=== PATIENT | female | born 1980 | race Caucasian/White ===

== ENCOUNTER 2022-01-01 13:08 | Inpatient (IN) | payer SELFPAY ==
--- NOTE | 2022-01-01 13:57 | Cat Scan Report ---
NONENHANCED CT SCAN OF THE HEAD: INDICATION / CLINICAL INFORMATION: 41 years Female; CODE STROKE CALL [phone] LEFT SIDED WEAKNESS/LEFT SIDED DROP NO HX OF HBP. TECHNIQUE: Routine CT head without contrast. All CT scans at this location are performed using CT dos e reduction for ALARA by means of automated exposure control. COMPARISON: None. FINDINGS: BRAIN / INTRACRANIAL CONTENTS: No intracerebral hemorrhage or stroke mimics No acute hemorrhage, mass effect, midline shift, hydrocephalus, or acute, large territorial infarct. No chronic infarct or focal atrophy. Normal brain volume and ventricular/sulcal size for age. No sig nificant white matter abnormality. CRANIOCERVICAL JUNCTION: No significant abnormality. ORBITS: No significant abnormality of visualized orbits. SINUSES / MASTOIDS: No significant abnormality of the visualized paranasal sinuses or mastoid air lurdes ls. ADDITIONAL FINDINGS: Focal calcification in the sella turcica on the right side of pituitary gland, p robably pituitary stone IMPRESSION: No intracerebral hemorrhage or stroke mimics No acute focal parenchymal lesion CODE STROKE: Time of Communication (TALENT MANAGEMENT SPECIALIST/CDT): 12:50 PM Central daylight saving time Licensed Practitioner Receiving Report: ER physician Signer Name: Belen Fernandez MD Signed: 01/01/2022 1:53 PM Workstation Name: [id number]
[2022-01-01] MEDS ORDERED: SODIUM CHLORIDE 0.9% 50 ML IVPB IV ONE (14:17)
[2022-01-01] MEDS ORDERED: ALTEPLASE 100 MG INJ KIT IV ONE ×2 (14:17)
[2022-01-01 14:21] LABS: Basophils % (Auto) 0.6 % (0.0-1.8); Eosinophils % (Auto) 0.7 % (0.0-4.3); Hematocrit 26.4 % (30.3-42.9); Hemoglobin 8.5 gm/dl (10.1-14.3); Lymphocytes # (Auto) 0.6 K/mm3 (1.2-5.4); Lymphocytes % (Auto) 13.3 % (13.4-35.0); Mean Corpuscular HGB Conc 32 % (30-34); Mean Corpuscular Volume 105 fl (79-97); Monocytes # (Auto) 0.3 K/mm3 (0.0-0.8); Monocytes % (Auto) 6.9 % (0.0-7.3); Platelet Count 176 K/mm3 (140-440); Red Blood Count 2.51 M/mm3 (3.65-5.03)
[2022-01-01 14:22] LABS: Red Cell Distribution Width 22.9 % (13.2-15.2)
[2022-01-01 14:31] LABS: INR 0.97 (0.87-1.13)
--- NOTE | 2022-01-01 14:38 | Cat Scan Report ---
CTA NECK WITH CONTRAST 01/01/2022 INDICATION / CLINICAL INFORMATION: code stoke 100ml of omnipaque 350 given LEFT SIDED WEAKNESS/LEFT SIDED DROP NO HX OF HBP. COMPARISON: None. TECHNIQUE: Routine CTA of the neck is performed. 3-D/MIP reformats were postprocessed. Percentage st enosis is determined by direct quantitative measurements of diseased internal carotid artery diameter compared with normal distal internal carotid artery reference segments or by criteria similar to MIMA CET where applicable. All CT scans at this location are performed using CT dose reduction for ALARA b y means of automated exposure control. CONTRAST: 100 ml of Omnipaque 350 FINDINGS: Carotid bifurcations: There is no evidence of carotid bifurcation stenosis. Carotid arteries: No significant abnormality. Cervical vertebral arteries: No significant abnormality. Aortic arch: No significant abnormality. None. IMPRESSION: No significant abnormality. Signer Name: Dung Farrell MD Signed: 01/01/2022 2:34 PM Workstation Name: [id number]
[2022-01-01 14:43] LABS: Creatine Kinase MB 1.4 ng/mL (0.0-4.0)
[2022-01-01 14:44] LABS: Alanine Aminotransferase 11 units/L (7-56); Albumin 3.6 g/dL (3.9-5); Blood Urea Nitrogen 10 mg/dL (7-17); Calcium 8.2 mg/dL (8.4-10.2); Hemolysis Index 2
[2022-01-01 14:45] LABS: BUN/Creatinine Ratio 20
--- NOTE | 2022-01-01 15:05 | Emergency Department Report ---
ED Neuro Deficit HPI - General Chief Complaint: Neuro Symptoms/Deficit Stated Complaint: CHEST/HEAD HURTS Time Seen by Provider: 01/01/22 13:43 Source: patient Mode of arrival: Ambulatory Limitations: No Limitations - History of Present Illness Initial Comments: [facility] Consult Note # Demographics Consult Type: Acute Stroke Level 1 (0-4.5 hrs) Patient Location: Emergency Room First Name: Tom Last Name: Peter Date of : 1980 Age: 41 Gender: Male Facility: [facility] Time of Initial Page ( Time): 01/01/2022, 13:27 Time of Return Call ( Time): 01/01/2022, 13:27 # HPI Chief Complaint: weakness (focal) Handedness: Right History: Per ER staff, sudden onset left arm & facial weakness at 1pm. Last Known Normal: I have collected independent history specific to time last normal or last known well. We have collaborated with the provider and at this time, we have the most current timeline with the information that is available. 1pm Duration: constant minutes Possible Thrombolytic candidate: not on warfarin or NOACs no intracranial hemorrhage history no recent major surgery Quality: weakness # Scores Time of exam and NIHSS ( Time): 01/01/2022, 13:32 Level of Consciousness 1a: [0] = Alert; keenly responsive LOC Questions 1b: [0] = Answers both questions correctly LOC Commands 1c: [0] = Performs both tasks correctly Best Gaze 2: [0] = Normal Visual 3: [0] = No visual loss Facial Palsy 4: [1] = Minor paralysis Motor Arm Left 5a: [3] = No effort against gravity Motor Arm Right 5b: [0] = No drift Motor Leg Left 6a: [2] = Some effort against gravity Motor Leg Right 6b: [0] = No drift Limb Ataxia 7: [0] = Absent Sensory 8: [1] = [id number]-[id number] sensory loss Best Language 9: [0] = No aphasia Dysarthria 10: [0] = Normal Extinction and Inattention 11: [0] = No abnormality NIHSS Total: 7 Modified Sterling Scale (mRS) pre-stroke: [0] = No Symptoms Modified Karol Scale total: 0 VAN Screening: Negative # Exam SBP: 245 DBP: 113 Mental Status: awake alert and oriented x 3 follows commands Cranial Nerves: left facial droop Mild asymmetry Sensory: decreased sensation left face decreased sensation left upper extremity # PMH-FH-SH Past Medical History: asthma hypertension Social History: non-smoker Medications: antihypertensive # Data Glucose: [address] personally read by me ( Time): 01/01/2022, 13:[address]: no bleed per radiologist read # Assessment Impression: Ischemic Stroke (Acute) # Plan Thrombolytic/Intervention: IV thrombolytic and possible IA candidate Thrombolytic Dosing: IV alteplase 0.9 mg/kg, max dose 90 mg; 10% of dose given over 1 minute IVP, remaining 90% given as infusion over 1 hour Possible IA Candidate: CTA pending Time IV Thrombolytic Recommended ( Time): 01/01/2022, 13:41 Labs: CBC comprehensive metabolic panel ESR hemoglobin A1c lipid panel troponin TSH urine drug screen ua hCG - patient stated that she was not Imaging: (urgency: STAT): CT Angiogram Head and CT Angiogram Neck AND call back with results if abnormal Imaging: (urgency: routine): MRI Brain without contrast Diagnostic Test: echo without bubble study Therapy/Evaluation: NPO until swallow evaluation PT/OT evaluation Medication: aspirin 81 mg daily start statin with goal of LDL < 70 DVT Prophylaxis: SCD chemical DVT prophylaxis Thrombolytic Administration Recommendations: I reviewed the risks/benefits/alternatives of IV thrombolytic therapy with the patient. They understand there is potential of life threatening hemorrhage from IV thrombolysis. I stated that I believe benefits outweighs risk. They wish to proceed with IV thrombolytic therapy. I have collected independent history specific to time last normal or last known well. We have collaborated with the ED provider and at this time, we have the most current timeline with the information that is available. BP goal< 180/105 for 24hrs post Thrombolytic administration Use Labetolol 10-20mg IV prn or Nicardipine gtt to maintain BP parameters No antiplatelets or anticoagulants for next 24 hrs unless indicated for emergent IA procedure or other life threatening situation Other: telemetry monitoring I have discussed my recommendations with the referring provider Disposition: admit # Logistics Telemedicine: Interactive 2 way audio and visual telecommunication technology was utilized during this visit Electronically signed at 01/01/2022 13:43 ( Time) by Urban Aden MD - Related Data Allergies/Adverse Reactions: Allergies Allergy/AdvReac Type Severity Reaction Status Date / Time No Known Allergies Allergy Verified 01/01/22 13:25 ED Review of Systems ROS: Stated complaint: CHEST/HEAD HURTS Other details as noted in HPI ED Neuro Physical Exam - General Limitations: No Limitations Suspected Stroke: Yes - NIHSS Assessment Interval: Baseline 1a. Level of Consciousness: alert/keenly responsive 1b. LOC Questions: answers both correctly 1c. LOC Commands: performs tasks correctly 2. Best Gaze: normal 3. Visual: no visual loss 4. Facial Palsy: minor paralysis 5b. Motor Arm Right: no gravity effort 5a. Motor Arm Left: no drift 6a. Motor Leg Left: some gravity effort 6b. Motor Leg Right: no drift 7. Limb Ataxia: absent 8. Sensory: mild/moderate sensory loss 9. Best Language: no aphasia 10. Dysarthria: normal 11. Extinction/Inattention: no abnormality Total Score: 7 Stroke Severity: Moderate Stroke ED Course Vital Signs 01/01/22 01/01/22 01/01/22 13:25 14:47 14:51 Temperature 98 F Pulse Rate 108 H 95 H 97 H Pulse Rate [ Right Arm] Respiratory 16 Rate Respiratory Rate [Right Arm ] Blood Pressure 184/97 184/97 Blood Pressure 223/110 [Left] Blood Pressure [Right Arm] O2 Sat by Pulse 97 Oximetry O2 Sat by Pulse Oximetry [ Right Arm] 01/01/22 14:52 Temperature Pulse Rate Pulse Rate [ 92 H Right Arm] Respiratory Rate Respiratory 12 Rate [Right Arm ] Blood Pressure Blood Pressure [Left] Blood Pressure 176/91 [Right Arm] O2 Sat by Pulse Oximetry O2 Sat by Pulse 93 Oximetry [ Right Arm] - Lab Data Result diagrams: 01/01/22 14:11 01/01/22 14:11 Lab Results 01/01/22 01/01/22 01/01/22 Range/Units 14:11 14:11 14:11 WBC 4.7 (4.5-11.0) K/mm3 RBC 2.51 L (3.65-5.03) M/mm3 Hgb 8.5 L (10.1-14.3) gm/dl Hct 26.4 L (30.3-42.9) % MCV 105 H (79-97) fl MCH 34 H (28-32) pg MCHC 32 (30-34) % RDW 22.9 H (13.2-15.2) % Plt Count 176 (140-440) K/mm3 Lymph % (Auto) 13.3 L (13.4-35.0) % [place] % (Auto) 6.9 (0.0-7.3) % Eos % (Auto) 0.7 (0.0-4.3) % Baso % (Auto) 0.6 (0.0-1.8) % Lymph # (Auto) 0.6 L (1.2-5.4) K/mm3 [place] # (Auto) 0.3 (0.0-0.8) K/mm3 Eos # (Auto) 0.0 (0.0-0.4) K/mm3 Baso # (Auto) 0.0 (0.0-0.1) K/mm3 Seg Neutrophils % 78.5 H (40.0-70.0) % Seg Neutrophils # 3.7 (1.8-7.7) K/mm3 PT 14.0 (12.2-14.9) Sec. INR 0.97 (0.87-1.13) APTT 32.0 (24.2-36.6) Sec. Thrombin Time 16.0 (15.1-19.6) Sec. Sodium (137-145) mmol/L Potassium (3.6-5.0) mmol/L Chloride (98-107) mmol/L Carbon Dioxide (22-30) mmol/L Anion Gap mmol/L BUN (7-17) mg/dL Creatinine (0.6-1.2) mg/dL Estimated GFR ml/min BUN/Creatinine Ratio % Glucose (65-100) mg/dL Calcium (8.4-10.2) mg/dL Total Bilirubin (0.1-1.2) mg/dL AST (5-40) units/L ALT (7-56) units/L Alkaline Phosphatase (35-129) units/L Total Creatine Kinase (30-135) units/L CK-MB (CK-2) (0.0-4.0) ng/mL CK-MB (CK-2) Rel Index (0-4) Troponin T < 0.010 (0.00-0.029) ng/mL Total Protein (6.3-8.2) g/dL Albumin (3.9-5) g/dL Albumin/Globulin Ratio % // Range/Units 14:11 WBC (4.5-11.0) K/mm3 RBC (3.65-5.03) M/mm3 Hgb (10.1-14.3) gm/dl Hct (30.3-42.9) % MCV (79-97) fl MCH (28-32) pg MCHC (30-34) % RDW (13.2-15.2) % Plt Count (140-440) K/mm3 Lymph % (Auto) (13.4-35.0) % [place] % (Auto) (0.0-7.3) % Eos % (Auto) (0.0-4.3) % Baso % (Auto) (0.0-1.8) % Lymph # (Auto) (1.2-5.4) K/mm3 [place] # (Auto) (0.0-0.8) K/mm3 Eos # (Auto) (0.0-0.4) K/mm3 Baso # (Auto) (0.0-0.1) K/mm3 Seg Neutrophils % (40.0-70.0) % Seg Neutrophils # (1.8-7.7) K/mm3 PT (12.2-14.9) Sec. INR (0.87-1.13) APTT (24.2-36.6) Sec. Thrombin Time (15.1-19.6) Sec. Sodium 137 (137-145) mmol/L Potassium 3.5 L (3.6-5.0) mmol/L Chloride 100.7 (98-107) mmol/L Carbon Dioxide 26 (22-30) mmol/L Anion Gap 14 mmol/L BUN 10 (7-17) mg/dL Creatinine 0.5 L (0.6-1.2) mg/dL Estimated GFR > 60 ml/min BUN/Creatinine Ratio 20 % Glucose 101 H (65-100) mg/dL Calcium 8.2 L (8.4-10.2) mg/dL Total Bilirubin 1.70 H (0.1-1.2) mg/dL AST 30 (5-40) units/L ALT 11 (7-56) units/L Alkaline Phosphatase 94 (35-129) units/L Total Creatine Kinase 56 (30-135) units/L CK-MB (CK-2) 1.4 (0.0-4.0) ng/mL CK-MB (CK-2) Rel Index 2.5 (0-4) Troponin T < 0.010 (0.00-0.029) ng/mL Total Protein 7.2 (6.3-8.2) g/dL Albumin 3.6 L (3.9-5) g/dL Albumin/Globulin Ratio 1.0 % Critical care attestation.: If time is entered above; I have spent that time in minutes in the direct care of this critically ill patient, excluding procedure time. ED Disposition Clinical Impression: Stroke Disposition: 09 ADMITTED INPATIENT Is pt being admited?: Yes
--- NOTE | 2022-01-01 15:24 | Cat Scan Report ---
CTA HEAD WITH CONTRAST 01/01/2022 HISTORY: code stroke 100ml of omnipaque 350 given LEFT SIDED WEAKNESS/LEFT SIDED DROP NO HX OF HBP. COMPARISON: None. TECHNIQUE: All CT scans at this location are performed using CT dose reduction for ALARA by means of automated exposure control.. 3-D/MIP reformats postprocessed. Percentage stenosis is determined by d irect quantitative measurements of diseased internal carotid artery diameter compared with normal dis zonia internal carotid artery reference segments or by criteria similar to NASCET where applicable. CONTRAST: 100 ml of Omnipaque 350 FINDINGS: CTA HEAD: Intracranial vertebral arteries: No significant abnormality. Basilar artery: No significant abnormality. Posterior cerebral arteries: No significant abnormality. Intracranial internal carotid arteries: No significant abnormality. Anterior cerebral arteries: No significant abnormality. Middle cerebral arteries: No significant abnormality. Dural venous sinuses:Not optimally opacified. No significant abnormality. Additional findings: None. IMPRESSION: 1. No significant abnormality. Signer Name: Dung Farrell MD Signed: 01/01/2022 3:20 PM Workstation Name: [id number]
[2022-01-01 15:42] LABS: Amphetamine Screen,Urine Negative; Benzodiazepines Screen,Urine Negative; Cannabinoid Screen,Urine Negative; Cocaine Screen,Urine Negative; Methadone Screen,Urine Negative; Opiate Screen,Urine Negative
[2022-01-01 15:51] LABS: Bilirubin,Urine Negative (Negative); Color,Urine Yellow (Yellow)
[2022-01-01 15:52] LABS: Blood,Urine Small (Negative); Protein,Urine <15 mg/dL mg/dL (Negative)
--- NOTE | 2022-01-01 16:01 | Emergency Department Report ---
ED Neuro Deficit HPI - General Chief Complaint: Neuro Symptoms/Deficit Stated Complaint: CHEST/HEAD HURTS Time Seen by Provider: 01/01/22 13:43 Source: patient Mode of arrival: Ambulatory Limitations: No Limitations - History of Present Illness Initial Comments: PT PRESENTS TO ED WITH COMPLAINT OF LEFT SIDE WEAKNESS AND FACIAL DROOP X 1 HOUR pt had chest tightness then SOB and felt dizzy then felt left side is heavy and numb -: Sudden, hour(s) (1) Location: left face, left arm, left leg History of same: Yes Place: home Severity: mild Quality: weak, numb Improves With: none Worsens With: none On Anticoagulants: No Context: sudden onset Associated Symptoms: chest pain, shortness of breath. denies: denies other symptoms, confusion Treatments Prior to Arrival: none - Related Data Allergies/Adverse Reactions: Allergies Allergy/AdvReac Type Severity Reaction Status Date / Time No Known Allergies Allergy Verified 01/01/22 13:25 ED Review of Systems ROS: Stated complaint: CHEST/HEAD HURTS Other details as noted in HPI Constitutional: denies: chills, fever Eyes: denies: eye pain, eye discharge, vision change ENT: denies: ear pain, throat pain Respiratory: denies: cough, shortness of breath, wheezing Cardiovascular: denies: chest pain, palpitations Endocrine: no symptoms reported Gastrointestinal: denies: abdominal pain, nausea, diarrhea Genitourinary: denies: urgency, dysuria, discharge Musculoskeletal: denies: back pain, joint swelling, arthralgia Skin: denies: rash, lesions Neurological: denies: headache, weakness, paresthesias Psychiatric: denies: anxiety, depression Hematological/Lymphatic: denies: easy bleeding, easy bruising ED Past Medical Hx - Past Medical History Hx Hypertension: Yes Hx CVA: No Hx Heart Attack/AMI: No - Social History Smoking Status: Current Every Day Smoker ED Neuro Physical Exam - General Limitations: No Limitations General appearance: alert, in no apparent distress Suspected Stroke: Yes - Head Head exam: Present: atraumatic, normocephalic - Eye Eye exam: Present: normal appearance - ENT ENT exam: Present: mucous membranes moist - Neck Neck exam: Present: normal inspection - Respiratory Respiratory exam: Present: normal lung sounds bilaterally. Absent: respiratory distress - Cardiovascular Cardiovascular Exam: Present: regular rate, normal rhythm. Absent: systolic murmur, diastolic murmur, rubs, gallop - GI/Abdominal GI/Abdominal exam: Present: soft, normal bowel sounds - Extremities Exam Extremities exam: Present: normal inspection - Back Exam Back exam: Present: normal inspection - Neurological Exam Neurological exam: Present: alert, oriented X3 - NIHSS Assessment Interval: Baseline 1a. Level of Consciousness: alert/keenly responsive 1b. LOC Questions: answers both correctly 1c. LOC Commands: performs tasks correctly 2. Best Gaze: normal 3. Visual: no visual loss 4. Facial Palsy: minor paralysis 5b. Motor Arm Right: no drift 5a. Motor Arm Left: no gravity effort 6a. Motor Leg Left: some gravity effort 6b. Motor Leg Right: no drift 7. Limb Ataxia: absent 8. Sensory: mild/moderate sensory loss 9. Best Language: no aphasia 10. Dysarthria: normal 11. Extinction/Inattention: no abnormality Total Score: 7 Stroke Severity: Moderate Stroke - Psychiatric Psychiatric exam: Present: normal affect, normal mood - Skin Skin exam: Present: warm, dry, intact, normal color. Absent: rash ED Course Vital Signs 01/01/22 01/01/22 01/01/22 13:25 14:27 14:30 Temperature 98 F Pulse Rate 108 H Pulse Rate [ Right Arm] Respiratory 16 Rate Respiratory Rate [Right Arm ] Blood Pressure 175/85 175/85 Blood Pressure 223/110 [Left] Blood Pressure [Right Arm] O2 Sat by Pulse 97 80 L 86 Oximetry O2 Sat by Pulse Oximetry [ Right Arm] 01/01/22 01/01/22 01/01/22 14:47 14:51 14:52 Temperature Pulse Rate 95 H 97 H Pulse Rate [ 92 H Right Arm] Respiratory Rate Respiratory 12 Rate [Right Arm ] Blood Pressure 184/97 184/97 149/66 Blood Pressure [Left] Blood Pressure 176/91 [Right Arm] O2 Sat by Pulse 82 L Oximetry O2 Sat by Pulse 93 Oximetry [ Right Arm] 01/01/22 01/01/22 01/01/22 15:00 15:07 15:15 Temperature Pulse Rate Pulse Rate [ 96 H Right Arm] Respiratory Rate Respiratory 15 Rate [Right Arm ] Blood Pressure 184/97 Blood Pressure [Left] Blood Pressure 159/69 [Right Arm] O2 Sat by Pulse 91 93 Oximetry O2 Sat by Pulse 93 Oximetry [ Right Arm] 01/01/22 01/01/2222 15:16 15:22 15:30 Temperature Pulse Rate Pulse Rate [ 92 H Right Arm] Respiratory Rate Respiratory 18 Rate [Right Arm ] Blood Pressure 176/91 159/69 Blood Pressure [Left] Blood Pressure 155/99 [Right Arm] O2 Sat by Pulse 85 94 Oximetry O2 Sat by Pulse 94 Oximetry [ Right Arm] 01/01/22 01/01/22 01/01/22 15:37 15:46 16:07 Temperature Pulse Rate Pulse Rate [ 91 H Right Arm] Respiratory Rate Respiratory 19 18 Rate [Right Arm ] Blood Pressure 159/69 Blood Pressure [Left] Blood Pressure 155/99 146/77 [Right Arm] O2 Sat by Pulse 97 Oximetry O2 Sat by Pulse 95 97 Oximetry [ Right Arm] 01/01/22 01/01/22 01/01/22 16:16 16:30 16:46 Temperature Pulse Rate 89 92 H 91 H Pulse Rate [ Right Arm] Respiratory 32 H 34 H 28 H Rate Respiratory Rate [Right Arm ] Blood Pressure 140/73 153/80 152/79 Blood Pressure [Left] Blood Pressure [Right Arm] O2 Sat by Pulse 97 98 99 Oximetry O2 Sat by Pulse Oximetry [ Right Arm] 01/01/22 01/01/22 01/01/22 17:00 17:20 17:30 Temperature Pulse Rate 115 H 101 H 95 H Pulse Rate [ Right Arm] Respiratory 30 H 45 H 28 H Rate Respiratory Rate [Right Arm ] Blood Pressure 149/89 149/89 144/67 Blood Pressure [Left] Blood Pressure [Right Arm] O2 Sat by Pulse 87 89 97 Oximetry O2 Sat by Pulse Oximetry [ Right Arm] 01/01/22 01/01/22 01/01/22 17:46 18:00 18:16 Temperature Pulse Rate 92 H 90 88 Pulse Rate [ Right Arm] Respiratory 39 H 34 H 32 H Rate Respiratory Rate [Right Arm ] Blood Pressure 144/67 145/86 145/86 Blood Pressure [Left] Blood Pressure [Right Arm] O2 Sat by Pulse 97 94 94 Oximetry O2 Sat by Pulse Oximetry [ Right Arm] 01/01/22 01/01/22 01/01/22 18:30 18:46 18:50 Temperature Pulse Rate 94 H 96 H 96 H Pulse Rate [ Right Arm] Respiratory 37 H 37 H 20 Rate Respiratory Rate [Right Arm ] Blood Pressure 140/89 140/89 Blood Pressure 140/89 [Left] Blood Pressure [Right Arm] O2 Sat by Pulse 95 85 95 Oximetry O2 Sat by Pulse Oximetry [ Right Arm] 01/01/22 19:00 Temperature Pulse Rate 94 H Pulse Rate [ Right Arm] Respiratory 50 H Rate Respiratory Rate [Right Arm ] Blood Pressure 144/89 Blood Pressure [Left] Blood Pressure [Right Arm] O2 Sat by Pulse 98 Oximetry O2 Sat by Pulse Oximetry [ Right Arm] - Lab Data Result diagrams: 01/01/22 14:11 01/01/22 14:11 Lab Results 01/01/22 01/01/22 01/01/22 Range/Units 14:11 14:11 14:11 WBC 4.7 (4.5-11.0) K/mm3 RBC 2.51 L (3.65-5.03) M/mm3 Hgb 8.5 L (10.1-14.3) gm/dl Hct 26.4 L (30.3-42.9) % MCV 105 H (79-97) fl MCH 34 H (28-32) pg MCHC 32 (30-34) % RDW 22.9 H (13.2-15.2) % Plt Count 176 (140-440) K/mm3 Lymph % (Auto) 13.3 L (13.4-35.0) % [place] % (Auto) 6.9 (0.0-7.3) % Eos % (Auto) 0.7 (0.0-4.3) % Baso % (Auto) 0.6 (0.0-1.8) % Lymph # (Auto) 0.6 L (1.2-5.4) K/mm3 [place] # (Auto) 0.3 (0.0-0.8) K/mm3 Eos # (Auto) 0.0 (0.0-0.4) K/mm3 Baso # (Auto) 0.0 (0.0-0.1) K/mm3 Seg Neutrophils % 78.5 H (40.0-70.0) % Seg Neutrophils # 3.7 (1.8-7.7) K/mm3 PT 14.0 (12.2-14.9) Sec. INR 0.97 (0.87-1.13) APTT 32.0 (24.2-36.6) Sec. Thrombin Time 16.0 (15.1-19.6) Sec. D-Dimer (0-234) ng/mlDDU Sodium (137-145) mmol/L Potassium (3.6-5.0) mmol/L Chloride (98-107) mmol/L Carbon Dioxide (22-30) mmol/L Anion Gap mmol/L BUN (7-17) mg/dL Creatinine (0.6-1.2) mg/dL Estimated GFR ml/min BUN/Creatinine Ratio % Glucose (65-100) mg/dL Calcium (8.4-10.2) mg/dL Total Bilirubin (0.1-1.2) mg/dL AST (5-40) units/L ALT (7-56) units/L Alkaline Phosphatase (35-129) units/L Total Creatine Kinase (30-135) units/L CK-MB (CK-2) (0.0-4.0) ng/mL CK-MB (CK-2) Rel Index (0-4) Troponin T < 0.010 (0.00-0.029) ng/mL Total Protein (6.3-8.2) g/dL Albumin (3.9-5) g/dL Albumin/Globulin Ratio % 01/01/22 01/01/22 Range/Units 14:11 14:11 WBC (4.5-11.0) K/mm3 RBC (3.65-5.03) M/mm3 Hgb (10.1-14.3) gm/dl Hct (30.3-42.9) % MCV (79-97) fl MCH (28-32) pg MCHC (30-34) % RDW (13.2-15.2) % Plt Count (140-440) K/mm3 Lymph % (Auto) (13.4-35.0) % [place] % (Auto) (0.0-7.3) % Eos % (Auto) (0.0-4.3) % Baso % (Auto) (0.0-1.8) % Lymph # (Auto) (1.2-5.4) K/mm3 [place] # (Auto) (0.0-0.8) K/mm3 Eos # (Auto) (0.0-0.4) K/mm3 Baso # (Auto) (0.0-0.1) K/mm3 Seg Neutrophils % (40.0-70.0) % Seg Neutrophils # (1.8-7.7) K/mm3 PT (12.2-14.9) Sec. INR (0.87-1.13) APTT (24.2-36.6) Sec. Thrombin Time (15.1-19.6) Sec. D-Dimer 682.42 H (0-234) ng/mlDDU Sodium 137 (137-145) mmol/L Potassium 3.5 L (3.6-5.0) mmol/L Chloride 100.7 (98-107) mmol/L Carbon Dioxide 26 (22-30) mmol/L Anion Gap 14 mmol/L BUN 10 (7-17) mg/dL Creatinine 0.5 L (0.6-1.2) mg/dL Estimated GFR > 60 ml/min BUN/Creatinine Ratio 20 % Glucose 101 H (65-100) mg/dL Calcium 8.2 L (8.4-10.2) mg/dL Total Bilirubin 1.70 H (0.1-1.2) mg/dL AST 30 (5-40) units/L ALT 11 (7-56) units/L Alkaline Phosphatase 94 (35-129) units/L Total Creatine Kinase 56 (30-135) units/L CK-MB (CK-2) 1.4 (0.0-4.0) ng/mL CK-MB (CK-2) Rel Index 2.5 (0-4) Troponin T < 0.010 (0.00-0.029) ng/mL Total Protein 7.2 (6.3-8.2) g/dL Albumin 3.6 L (3.9-5) g/dL Albumin/Globulin Ratio 1.0 % - EKG Data -: EKG Interpreted by [place] EKG shows normal: sinus rhythm - Radiology Data Radiology results: image reviewed - Medical Decision Making streoke alert on arrival, spoke with neurologistCT head negative for acute beed, TPA canddate NIHSS score of 7 Critical Care Time: Yes Critical care time in (mins) excluding proc time.: 65 Critical care attestation.: If time is entered above; I have spent that time in minutes in the direct care of this critically ill patient, excluding procedure time. Critical Care Time: 65 ED Disposition Clinical Impression: Stroke Disposition: 09 ADMITTED INPATIENT Is pt being admited?: Yes Does the pt Need Aspirin: No Condition: Stable
[2022-01-01] MEDS ORDERED: PROMETHAZINE 25 MG RECT SUPP PR PRN (16:27)
[2022-01-01] MEDS ORDERED: METOCLOPRAMIDE 10 MG TAB PO PRN (16:27)
[2022-01-01] MEDS ORDERED: ONDANSETRON 4 MG/2 ML INJ IV PRN (16:27)
[2022-01-01] MEDS ORDERED: oxyCODONE /ACETAMINOPHEN 5-325MG TAB PO PRN (16:27)
[2022-01-01] MEDS ORDERED: MAGNESIUM HYDROXIDE (MOM) ORAL LIQD UDC PO PRN (16:27)
[2022-01-01] MEDS ORDERED: ACETAMINOPHEN 325 MG TAB PO PRN (16:27)
[2022-01-01] MEDS ORDERED: HYDROmorphone 1 MG/1 ML INJ IV PRN (16:27)
--- NOTE | 2022-01-01 16:27 | History and Physical Report ---
History of Present Illness Chief complaint: My chest hurts and my arm felt numb History of present illness: 41 YO Female with Obesity, HTN, Medication Noncompliance presents ED for evaluation. Patient reports that she experienced a sudden onset of pain in her chest and shortness of breath today. Patient also acknowledges sudden onset left arm and face weakness after rising from a seated position. Patient transported to [facility] via private vehicle for further care and evaluation of the aforementioned symptoms. The patient was seen and evaluated in the emergency department. All lab and imaging studies reviewed. Patient was found to have a focal neurologic deficit. Teleneurology consulted. Patient found to have clinical symptoms consistent with CVA and initiated on TPA protocol. Patient admitted to ICU and initiated on CVA protocol. Patient denies fever, chills, palpitation, productive cough, skin rash, recent ill contacts, known exposure to COVID-19. No prior admission for review. No medication listed at time of admission for reconciliation. Advanced care planning conducted in ED. CTA chest is ordered and pending at time of admission. Past History Past Medical History: hypertension, other (See HPI) Past Surgical History: No surgical history, Other (Reviewed) Social history: single. denies: smoking, alcohol abuse, prescription drug abuse Family history: diabetes, hypertension Medications and Allergies Allergies Allergy/AdvReac Type Severity Reaction Status Date / Time No Known Allergies Allergy Verified 01/01/22 13:25 Review of Systems Constitutional: no weight loss, no weight gain, no fever, no chills Ears, nose, mouth and throat: no ear pain, no tinnitis, no decreased hearing, no nasal discharge Breasts: no change in shape, no swelling, no mass Cardiovascular: no orthopnea, no palpitations, no edema Respiratory: no cough, no cough with sputum, no hemoptysis, no dyspnea on exertion Gastrointestinal: no abdominal pain, no nausea, no diarrhea, no constipation, no hematemesis Genitourinary Female: no pelvic pain, no flank pain, no dysuria, no urinary frequency Rectal: no pain, no incontinence, no bleeding Musculoskeletal: no neck stiffness, no neck pain, no shooting arm pain, no low back pain Integumentary: no redness, no wounds, no boils Neurological: no head injury, no paralysis, no parathesias, no tingling, no alfonzo mors, no lack of coordination Psychiatric: no anxiety, no sleep disturbances, no hypersomnia, no change in libido, no suicidal ideation, no hallucinations Endocrine: no cold intolerance, no polyphagia, no excessive thirst, no excessive sweating, no flushing Hematologic/Lymphatic: no easy bruising, no lymphadenopathy Allergic/Immunologic: no urticaria, no allergic rhinitis, no persistent infections, no anaphylaxis Exam - Constitutional Vitals: Temp Pulse Resp BP Pulse Ox 98 F 89 32 H 140/73 97 01/01/22 13:25 01/01/22 16:16 01/01/22 16:16 01/01/22 16:16 01/01/22 16:16 General appearance: Present: mild distress - EENT Eyes: Present: PERRL ENT: hearing intact, clear oral mucosa - Neck Neck: Present: supple, normal ROM - Respiratory Respiratory effort: normal Respiratory: bilateral: CTA - Cardiovascular Heart Sounds: Present: S1 & S2. Absent: rub, click - Extremities Extremities: pulses symmetrical, No edema Peripheral Pulses: within normal limits - Abdominal General gastrointestinal: Present: soft, non-tender, non-distended, normal bowel sounds Female genitourinary: Present: normal - Integumentary Integumentary: Present: clear, warm, dry - Musculoskeletal Musculoskeletal: gait normal, strength equal bilaterally - Psychiatric Psychiatric: appropriate mood/affect, intact judgment & insight - Neurologic Neurologic: CNII-XII intact, moves all extremities HEART Score - HEART Score Troponin: Troponin T < 0.010 ng/mL (0.00-0.029) 01/01/22 14:11 Troponin T < 0.010 ng/mL (0.00-0.029) 01/01/22 14:11 Results - Labs CBC & Chem 7: 01/01/22 14:11 01/01/22 14:11 Labs: Abnormal lab results 01/01/22 01/01/22 01/01/22 Range/Units 14:11 14:11 Unknown RBC 2.51 L (3.65-5.03) M/mm3 Hgb 8.5 L (10.1-14.3) gm/dl Hct 26.4 L (30.3-42.9) % MCV 105 H (79-97) fl MCH 34 H (28-32) pg RDW 22.9 H (13.2-15.2) % Lymph % (Auto) 13.3 L (13.4-35.0) % Lymph # (Auto) 0.6 L (1.2-5.4) K/mm3 Seg Neutrophils % 78.5 H (40.0-70.0) % Potassium 3.5 L (3.6-5.0) mmol/L Creatinine 0.5 L (0.6-1.2) mg/dL Glucose 101 H (65-100) mg/dL Calcium 8.2 L (8.4-10.2) mg/dL Total Bilirubin 1.70 H (0.1-1.2) mg/dL Albumin 3.6 L (3.9-5) g/dL Urine Blood Small A (Negative) Assessment and Plan - Patient Problems (1) CVA (cerebral vascular accident) Status: Acute Plan to address problem: CVA protocol: CT head, neuro check, seizure precautions aspiration precautions, TPA administered in ED, admit to ICU, critical care team consulted, carotid Doppler, echocardiogram, lipid panel, statin therapy. Hold aspirin therapy for 24 hours status post TPA administration. (2) Accelerated hypertension Status: Acute Plan to address problem: Monitor blood pressure every shift, continue medical management. (3) Noncompliance Status: Acute Plan to address problem: Patient counseled. Patient acknowledges understanding instructions. (4) Obesity Status: Acute Plan to address problem: Balanced diet, increase physical activity discharge. Patient with endocrine chart is not accurate. Daily weight. (5) Atypical chest pain Status: Acute Plan to address problem: D-dimer, CT angio chest ordered and pending at time of admission. Pain control, supportive care. (6) DVT prophylaxis Status: Acute Plan to address problem: SCD to bilateral lower extremities while in bed (7) Advance care planning Status: Acute Plan to address problem: Disease education done, care plan discussed, diagnoses discussed, prognosis discussed, patient is full code. Patient knowledges understanding and agreement with care plan, +30 minutes.
--- NOTE | 2022-01-01 17:41 | Cat Scan Report ---
CTA CHEST WITH CONTRAST INDICATION / CLINICAL INFORMATION: dypsnea. TECHNIQUE: Axial CT images were obtained through the chest after injection of 75 cc of Omnipaque 350 IV contrast. 3 plane MIP and/or 3D reconstructions were produced. All CT scans at this location are p erformed using CT dose reduction for ALARA by means of automated exposure control. COMPARISON: 12/27/2018 FINDINGS: PULMONARY ARTERIES: No central or segmental pulmonary emboli. The main pulmonary artery is dilated me asuring 4.2 cm, not significantly changed. THORACIC AORTA: No significant abnormality. HEART: No significant abnormality. CORONARY ARTERY CALCIFICATION: None. MEDIASTINUM / KATHYA: The right hilar and mediastinal lymph nodes appear prominent, not significantly c hanged. PLEURA: No pleural effusion. No pneumothorax. LUNGS: Scattered groundglass attenuation is noted in the bilateral lungs. There is a 6 mm solid pulmo nary nodule within the right upper lobe (series 4 image 156). There is an 8 mm solid pulmonary nodule within the subpleural right upper lobe (series 4 image 197). ADDITIONAL FINDINGS: None. UPPER ABDOMEN: Stable right adrenal lesion, not significant change compared to previous CT. SKELETAL STRUCTURES: No significant osseous abnormality. IMPRESSION: 1. No CT evidence for central or segmental pulmonary embolism. 2. Scattered groundglass attenuation throughout bilateral lungs which may be related to small airways disease versus atelectasis versus infectious process. 3. Chronic dilation of the main pulmonary artery suggesting pulmonary arterial hypertension. 4. Chronic mediastinal and right hilar lymph node prominence. 5. Multiple incidental pulmonary nodule(s) in the right upper lobe measuring 8 mm with solid characte ristics. Recommendation according to Fleischner Society 2017 Guidelines: Low Risk Patient: CT at 3-6 months, then consider CT at 18-24 months; High Risk Patient: CT at 3-6 months, then CT at 18-24 month . Signer Name: Hernando Bone DO Signed: 01/01/2022 5:36 PM Workstation Name: Cardiovascular Simulation
[2022-01-02 05:25] LABS: Chol/HDL Ratio 4.06 %
[2022-01-02] MEDS ORDERED: POTASSIUM CHLORIDE ER 20 MEQ TAB PO SCH (09:00)
--- NOTE | 2022-01-02 09:06 | Consultation ---
History of Present Illness Consult date: 01/02/22 Reason for Consult: CP ,left side weakness,abnormal CT chest r/o covid -19, Post TPA History of present illness: My chest hurts and my arm felt numb History of present illness: 41 YO Female with Obesity, HTN, Medication Noncompliance presents ED for evaluation. Patient reports that she experienced a sudden onset of pain in her chest and shortness of breath today. Patient also acknowledges sudden onset left arm and face weakness after rising from a seated position. Patient transported to [facility] via private vehicle for further care and evaluation of the aforementioned symptoms. The patient was seen and evaluated in the emergency department. All lab and imaging studies reviewed. Patient was found to have a focal neurologic deficit. Teleneurology consulted. Patient found to have clinical symptoms consistent with CVA and initiated on TPA protocol. Patient admitted to ICU and initiated on CVA protocol. Patient denies fever, chills, palpitation, productive cough, skin rash, recent ill contacts, known exposure to COVID-19. No prior admission for review. No medication listed at time of admission for reconciliation. Advanced care planning conducted in ED. CTA chest is remarkable for ground glass abnormalities COVID is pending still complaint of left side weakness and numbness MRI brain is pending Past History Past Medical History: hypertension, other (See HPI) Past Surgical History: No surgical history, Other (Reviewed) Social history: single. denies: smoking, alcohol abuse, prescription drug abuse Family history: diabetes, hypertension Medications and Allergies Allergies Allergy/AdvReac Type Severity Reaction Status Date / Time No Known Allergies Allergy Verified 01/01/22 13:25 Review of Systems Constitutional: no weight loss, no weight gain, no fever, no chills Ears, nose, mouth and throat: no ear pain, no tinnitis, no decreased hearing, no nasal discharge Breasts: no change in shape, no swelling, no mass Cardiovascular: no orthopnea, no palpitations, no edema Respiratory: no cough, no cough with sputum, no hemoptysis, no dyspnea on exertion Gastrointestinal: no abdominal pain, no nausea, no diarrhea, no constipation, no hematemesis Genitourinary Female: no pelvic pain, no flank pain, no dysuria, no urinary frequency Rectal: no pain, no incontinence, no bleeding Musculoskeletal: no neck stiffness, no neck pain, no shooting arm pain, no low back pain Integumentary: no redness, no wounds, no boils Neurological: no head injury, no paralysis, no parathesias, no tingling, no tremors, no lack of coordination Psychiatric: no anxiety, no sleep disturbances, no hypersomnia, no change in libido, no suicidal ideation, no hallucinations Endocrine: no cold intolerance, no polyphagia, no excessive thirst, no excessive sweating, no flushing Hematologic/Lymphatic: no easy bruising, no lymphadenopathy Allergic/Immunologic: no urticaria, no allergic rhinitis, no persistent infections, no anaphylaxis Past History Past Medical History: hypertension, other (See HPI) Past Surgical History: No surgical history, Other (Reviewed) Social history: single. denies: smoking, alcohol abuse, prescription drug abuse Family history: diabetes, hypertension Medications and Allergies Allergies Allergy/AdvReac Type Severity Reaction Status Date / Time No Known Allergies Allergy Verified 01/01/22 13:25 Home Medications Medication Instructions Recorded Confirmed Last Taken Type Escitalopram Oxalate [Lexapro] 20 mg PO HS 01/01/22 01/01/22 Unknown History Symbicort 160-4.5 Mcg Inhaler 160 mcg IH ONCE 01/01/22 01/01/22 Unknown History traZODone [Desyrel] 200 mg PO QHS 01/01/22 01/01/22 Unknown History Active Meds: Active Medications Acetaminophen (Acetaminophen 325 Mg Tab) 650 mg PO Q4H PRN PRN Reason: Pain, Mild (1-3) Aspirin (Aspirin 325 Mg Tab) 325 mg PO QDAY [facility] Atorvastatin Calcium (Atorvastatin 40 Mg Tab) 40 mg PO QHS [facility] Last Admin: 01/01/22 22:58 Dose: 40 mg Bisacodyl (Bisacodyl 10 Mg Rect Supp) 10 mg [place] QDAY PRN PRN Reason: Constipation Escitalopram Oxalate (Escitalopram 10 Mg Tab) 20 mg PO [facility] Hydromorphone HCl (Hydromorphone 1 Mg/1 Ml Inj) 0.5 mg IV Q23H PRN PRN Reason: Pain , Severe (7-10) Last Admin: 01/01/22 23:21 Dose: 0.5 mg Magnesium Hydroxide (Magnesium Hydroxide (Mom) Oral Liqd Udc) 30 ml PO Q4H PRN PRN Reason: Constipation Metoclopramide HCl (Metoclopramide 10 Mg Tab) 10 mg PO Q6H PRN PRN Reason: Nausea And Vomiting Ondansetron HCl (Ondansetron 4 Mg/2 Ml Inj) 4 mg IV Q8H PRN PRN Reason: Nausea And Vomiting Oxycodone/Acetaminophen (Oxycodone /Acetaminophen 5-325mg Tab) 1 tab PO Q16H PRN PRN Reason: Pain, Moderate (4-6) Last Admin: 01/01/22 20:42 Dose: 1 tab Pneumococcal Polyvalent Vaccine (Pneumococcal 23 Valent 0.5 Ml Vial) 0.5 ml IM .ONCE ONE Stop: 01/02/22 12:01 Potassium Chloride (Potassium Chloride Er 20 Meq Tab) 40 meq PO ONCE@0900 [facility] Stop: 01/02/22 12:00 Promethazine HCl (Promethazine 25 Mg Rect Supp) 25 mg WA Q6H PRN PRN Reason: Nausea And Vomiting Sodium Chloride (Sodium Chloride 0.9% 10 Ml Flush Syringe) 10 ml IV PRN PRN PRN Reason: LINE FLUSH Last Admin: 01/01/22 23:22 Dose: 10 ml Trazodone HCl (Trazodone 100 Mg Tab) 200 mg PO QHS [facility] Physical Examination - Vital Signs Vital Signs: Vital Signs Temp Pulse Resp BP Pulse Ox 98 F 108 H 16 223/110 97 01/01/22 13:25 01/01/22 13:25 01/01/22 13:25 01/01/22 13:25 01/01/22 13:25 - Constitutional General appearance: comfortable - EENT EENT: Present: PERRL, mucous membranes moist - Respiratory Respiratory: Present: lungs clear, rhonchi - Cardiovascular Cardiovascular: Present: regular rate, normal S1, normal S2 Extremities: Present: no peripheral edema bilatateraly, no clubbing, cyanosis - Gastrointestinal Gastrointestinal: Present: normoactive bowel sounds - Integumentary Integumentary: Present: normal - Neurologic Cranial nerve examination: PERRL, EOMI, intact Speech examination: intact Sensorimotor examination: intact, other (subjective complaint of right side numbness upper and lower) Detailed motor examination: grossly full strength in, other (she is with left up per drop with no pronation is noted, reflexes are suppressed , gait is not done) - Level of Consciousness 1a. Level of Consciousness: alert/keenly responsive - LOC Questions 1b. LOC Questions: answers both correctly - LOC Command 1c. LOC Commands: performs tasks correctly - Best Gaze 2. Best Gaze: normal - Visual 3. Visual: no visual loss - Facial Palsy 4. Facial Palsy: normal symmetrical movement - Motor Arm 5a. Motor Arm Left: no drift (but left upper arm drop with no pronation is noted) 5b. Motor Arm Right: no drift - Motor Leg 6a. Motor Leg Left: no drift 6b. Motor Leg Right: no drift - Limb Ataxia 7. Limb Ataxia: absent - Sensory 8. Sensory: mild/moderate sensory loss - Best Language 9. Best Language: no aphasia - Dysarthria 10. Dysarthria: normal - Extinction and Inattention 11. Extinction/Inattention: no abnormality - Scoring Total Score: 1 Stroke Severity: Minor Stroke Results - Laboratory Findings CBC and BMP: 01/01/22 14:11 01/01/22 14:11 Abnormal Lab Findings: Abnormal Labs 01/01/22 01/01/22 01/01/22 14:11 14:11 14:11 RBC 2.51 L Hgb 8.5 L Hct 26.4 L MCV 105 H MCH 34 H RDW 22.9 H Lymph % (Auto) 13.3 L Lymph # (Auto) 0.6 L Seg Neutrophils % 78.5 H D-Dimer 682.42 H Potassium 3.5 L Creatinine 0.5 L Glucose 101 H Calcium 8.2 L Total Bilirubin 1.70 H Albumin 3.6 L HDL Cholesterol Urine Blood 01/01/22 01/02/22 Unknown 04:40 RBC Hgb Hct MCV MCH RDW Lymph % (Auto) Lymph # (Auto) Seg Neutrophils % D-Dimer Potassium Creatinine Glucose Calcium Total Bilirubin Albumin HDL Cholesterol 29 L Urine Blood Small A Assessment and Plan Assessment and Plan 41 YO Female with Obesity, HTN, Medication Noncompliance presents ED for e valuation. Patient reports that she experienced a sudden onset of pain in her chest and shortness of breath today. Patient also acknowledges sudden onset left arm and face weakness after rising from a seated position. - Patient Problems # New onset CP and left arm numbness and weakness -R/O CVA (cerebral vascular accident) -was given TPA in ER -Initial NIH#7 -- today is #1 related to subjective sensory impairment and left upper give away weakness with no pronation!! -Initial BP #245/113 -CT brain and CTA brain and neck are unremarkable -LDL#76 -Echo is pending -MRI brain is pending { need ativan before MRI due to anxiety } -Pt/ST evaluate -repeat CT brain study in 24 hours # Accelerated hypertension -Initial BP#245/113 -Monitor blood pressure every shift, continue medical management. # Hx of underlying anxiety - followed by psychiatry -On lexapro #20 mg and trazdon #200 mg qhs # Noncompliance Patient counseled. Patient acknowledges understanding instructions. # Obesity -Balanced diet, increase physical activity discharge. Patient with endocrine chart is not accurate. Daily weight. # Atypical chest pain -D-dimer some what elevated #682 - CT angio chest abnormal -RO/COVID-19 # DVT prophylaxis -SCD to bilateral lower extremities while in bed Plan 1- Brain MRI 2- Hold antiplatles 3- Echo 4- restart her lexapro and trazdon 5- PT/ST evaluate 6- Repeat CT brain in 24 hours form onset Of TPA 7- Lipitor 40 mg 8- BP below 200/100 for 24 hours then gradual decrease to 150/80 9- compliance with BP medications
--- NOTE | 2022-01-02 09:45 | Consultation ---
History of Present Illness - Reason for Consult Consult date: 01/02/22 CVA post TPA - History of Present Illness 41 y/o female admitted with chest pain and shortness of breath, also found to have focal neurologic deficits. She has long standing Hypertension but has not been taking medication for some time. She has had issues with several physicians and not consistent medical therapy. No prior history of stroke. Patient complains of left sided weakness and left heel pain. She is sitting up in the chair awake and alert. Only complaint is of left heel pain. Past History Past Medical History: hypertension, other (asthma, obesity, depression/anxiety) Past Surgical History: No surgical history, Other (Reviewed) Social history: single. denies: smoking, alcohol abuse, prescription drug abuse Family history: diabetes, hypertension Medications and Allergies Allergies Allergy/AdvReac Type Severity Reaction Status Date / Time No Known Allergies Allergy Verified 01/01/22 13:25 Home Medications Medication Instructions Recorded Confirmed Last Taken Type Escitalopram Oxalate [Lexapro] 20 mg PO HS 01/01/22 01/01/22 Unknown History Symbicort 160-4.5 Mcg Inhaler 160 mcg IH ONCE 01/01/22 01/01/22 Unknown History traZODone [Desyrel] 200 mg PO QHS 01/01/22 01/01/22 Unknown History Active Meds: Active Medications Acetaminophen (Acetaminophen 325 Mg Tab) 650 mg PO Q4H PRN PRN Reason: Pain, Mild (1-3) Aspirin (Aspirin 325 Mg Tab) 325 mg PO QDAY [facility] Atorvastatin Calcium (Atorvastatin 40 Mg Tab) 40 mg PO QHS [facility] Last Admin: 01/01/22 22:58 Dose: 40 mg Bisacodyl (Bisacodyl 10 Mg Rect Supp) 10 mg [place] QDAY PRN PRN Reason: Constipation Escitalopram Oxalate (Escitalopram 10 Mg Tab) 20 mg PO HS [facility] Hydromorphone HCl (Hydromorphone 1 Mg/1 Ml Inj) 0.5 mg IV Q23H PRN PRN Reason: Pain , Severe (7-10) Last Admin: 01/01/22 23:21 Dose: 0.5 mg Magnesium Hydroxide (Magnesium Hydroxide (Mom) Oral Liqd Udc) 30 ml PO Q4H PRN PRN Reason: Constipation Metoclopramide HCl (Metoclopramide 10 Mg Tab) 10 mg PO Q6H PRN PRN Reason: Nausea And Vomiting Ondansetron HCl (Ondansetron 4 Mg/2 Ml Inj) 4 mg IV Q8H PRN PRN Reason: Nausea And Vomiting Oxycodone/Acetaminophen (Oxycodone /Acetaminophen 5-325mg Tab) 1 tab PO Q16H PRN PRN Reason: Pain, Moderate (4-6) Last Admin: 01/01/22 20:42 Dose: 1 tab Pneumococcal Polyvalent Vaccine (Pneumococcal 23 Valent 0.5 Ml Vial) 0.5 ml IM .ONCE ONE Stop: 01/02/22 12:01 Potassium Chloride (Potassium Chloride Er 20 Meq Tab) 40 meq PO ONCE@0900 [facility] Stop: 01/02/22 12:00 Promethazine HCl (Promethazine 25 Mg Rect Supp) 25 mg [place] Q6H PRN PRN Reason: Nausea And Vomiting Sodium Chloride (Sodium Chloride 0.9% 10 Ml Flush Syringe) 10 ml IV PRN PRN PRN Reason: LINE FLUSH Last Admin: 01/01/22 23:22 Dose: 10 ml Trazodone HCl (Trazodone 100 Mg Tab) 200 mg PO QHS [facility] Review of Systems All systems: negative Exam - Constitutional Vitals: Temp Pulse Resp BP Pulse Ox 98.0 F 82 33 H 149/77 92 01/02/22 07:12 01/02/22 08:00 01/02/22 08:00 01/02/22 08:00 01/02/22 08:58 General appearance: Present: no acute distress, obese - EENT Eyes: Present: PERRL, EOM intact ENT: hearing intact, clear oral mucosa - Neck Neck: Present: supple, normal ROM - Respiratory Respiratory effort: normal Respiratory: bilateral: CTA - Cardiovascular Rhythm: regular Heart Sounds: Present: S1 & S2 - Abdominal General gastrointestinal: Present: soft, non-tender, normal bowel sounds Female genitourinary: Present: deferred - Rectal Rectal Exam: deferred - Integumentary Integumentary: Present: clear, warm, dry - Musculoskeletal Musculoskeletal: left sided weakness Results - Labs CBC & Chem 7: 01/01/22 14:11 01/01/22 14:11 Labs: Abnormal lab results 01/01/22 01/01/22 01/01/22 Range/Units 14:11 14:11 14:11 RBC 2.51 L (3.65-5.03) M/mm3 Hgb 8.5 L (10.1-14.3) gm/dl Hct 26.4 L (30.3-42.9) % MCV 105 H (79-97) fl MCH 34 H (28-32) pg RDW 22.9 H (13.2-15.2) % Lymph % (Auto) 13.3 L (13.4-35.0) % Lymph # (Auto) 0.6 L (1.2-5.4) K/mm3 Seg Neutrophils % 78.5 H (40.0-70.0) % D-Dimer 682.42 H (0-234) ng/mlDDU Potassium 3.5 L (3.6-5.0) mmol/L Creatinine 0.5 L (0.6-1.2) mg/dL Glucose 101 H (65-100) mg/dL Calcium 8.2 L (8.4-10.2) mg/dL Total Bilirubin 1.70 H (0.1-1.2) mg/dL Albumin 3.6 L (3.9-5) g/dL HDL Cholesterol (40-59) mg/dL Urine Blood (Negative) 01/01/22 01/02/22 Range/Units Unknown 04:40 RBC (3.65-5.03) M/mm3 Hgb (10.1-14.3) gm/dl Hct (30.3-42.9) % MCV (79-97) fl MCH (28-32) pg RDW (13.2-15.2) % Lymph % (Auto) (13.4-35.0) % Lymph # (Auto) (1.2-5.4) K/mm3 Seg Neutrophils % (40.0-70.0) % D-Dimer (0-234) ng/mlDDU Potassium (3.6-5.0) mmol/L Creatinine (0.6-1.2) mg/dL Glucose (65-100) mg/dL Calcium (8.4-10.2) mg/dL Total Bilirubin (0.1-1.2) mg/dL Albumin (3.9-5) g/dL HDL Cholesterol 29 L (40-59) mg/dL Urine Blood Small A (Negative) - Imaging and Cardiology CT scan - chest: image reviewed (cardiomegaly with diffuse ground glass and motion artifact) Assessment and Plan 41 y/o obese female with uncontrolled hypertension admitted with stroke like symptoms s/p TPA 1. BP control with oral therapy 2. Follow up neurology recs if any 3. Pain control 4. PT/OT 5. 24 hours post TPA, start anticoagulation if neurology agrees. 6. STable for transfer out of unit after 14:17 today.
[2022-01-02] MEDS ORDERED: ASPIRIN 325 MG TAB PO SCH ×2 (10:00→16:00)
--- NOTE | 2022-01-02 10:21 | Vascular Lab Report ---
DUPLEX DOPPLER ULTRASOUND CAROTID, BILATERAL INDICATION / CLINICAL INFORMATION: stroke. Left side/arm/face weakness. COMPARISON: CT neck dated 01/01/22 FINDINGS: RIGHT CAROTID: No plaque. - PLAQUE ESTIMATE (%): None. - CCA velocity: 75 cm/sec. - ICA peak systolic velocity: 98 cm/sec. - ICA/CCA PSV Ratio: Less than 2 Right Vertebral Artery: Antegrade flow. LEFT CAROTID: No plaque. - PLAQUE ESTIMATE (%): None. - CCA velocity: 75 cm/sec. - ICA peak systolic velocity: 111 cm/sec. - ICA/CCA PSV Ratio: Less than 2 Left Vertebral Artery: Antegrade flow. IMPRESSION: 1. Right Internal Carotid Artery: Less than 50% diameter stenosis. 2. Left Internal Carotid Artery: Less than 50% diameter stenosis. Velocity criteria are extrapolated from diameter data as defined by the Society of Radiologists in [facility] Consensus Conference, Radiology 2003; 229;340-346. NO STENOSIS (NORMAL) - Plaque = none; ICA PSV < 125 cm/sec; ICA/CCA PSV Ratio < 2.0 <50% STENOSIS - Plaque < 50%; ICA PSV < 125 cm/sec; ICA/CCA PSV Ratio < 2.0 50-69% STENOSIS - Plaque > 50%; ICA PSV = 125-230 cm/sec; ICA/CCA PSV Ratio = 2.0-4.0 >70% BUT <100% STENOSIS - Plaque > 50%; ICA PSV > 230 cm/sec; ICA/CCA PSV Ratio > 4.0 NEAR OCCLUSION - Plaque = visible lumen; ICA PSV = high/low/none; ICA/CCA PSV Ratio = variable TOTAL OCCLUSION - Plaque = no lumen; ICA PSV = none; ICA/CCA PSV Ratio = N/A Signer Name: Matilda Lee MD Signed: 01/02/2022 10:17 AM Workstation Name: [id number]
[2022-01-02] MEDS ORDERED: PNEUMOCOCCAL 23 Valent 0.5 ML VIAL IM ONE (12:00)
[2022-01-02] MEDS ORDERED: FLU VACC QUAD 2021-22(6MOS UP)/PF 60 MCG/0.5 ML SYRINGE IM ONE (12:00)
--- NOTE | 2022-01-02 14:22 | Progress Note ---
Assessment and Plan Assessment and plan: This is a 41-year-old female with obesity, HTN, medication noncompliance, asthma admitted with rule out CVA s/p TPA Neuro: r/o CVA, h/o anxiety -Initial NIH 7 -Neurology consulted, appreciate recommendation -Restart home Lexapro and trazodone -Avoid delirium -Reorientation as needed -Maintain sleep-wake cycle -CT head on admit showed no intracerebral hemorrhage or stroke mimics -CTA neck/head showed no significant abnormality -Bilateral carotid ultrasound showed less than 50% diameter stenosis -PT/OT/ST consulted, patient recommendations -Echocardiogram pending -Lipid panel noted -Antiplatelets after 24 hours post TPA -Lipitor 40 -Blood pressure goal below 200/100 for 24 hours and gradual decrease to 150/80 -CCM consulted, appreciate recommendation Cardiac: Hypertensive urgency, h/o HTN -Blood pressure monitoring per protocol -Patient states she was diagnosed with hypertension years ago however is in the process of seeking a second opinion -She does have family history of hypertension -Echocardiogram pending -Start antihypertensives as needed Respiratory: Acute hypoxic respiratory failure -Presented with sudden onset of shortness of breath -SPO2 monitoring per protocol -Supplemental oxygen -Pulmonary hygiene -Possible OHS , recommend outpatient follow-up with pulmonology GI: Morbid obesity -Cardiac diet -24 hours -500 mL -PPI -BR: Colace : Hypokalemia -Renally dose medications -Avoid nephrotoxic medications -Replete potassium ID: COVID-19 PUI -COVID-19 PCR pending -Patient states that she was vaccinated with Moderna x2 and received a booster shot -Droplet/contact isolation -f/u blood culture -Monitor WBC and temperature curve Endo: NAD -Avoid hypoglycemia -SSI Heme: Elevated D-dimer -Admit D-dimer 682, presented with sudden onset of chest pain, shortness of breath -CTA chest showed no pulmonary embolism, scattered groundglass attenuation throughout bilateral lungs, chronic dilation of main pulmonary artery suggesting pulmonary arterial hypertension, chronic mediastinal and right hilar lymph node prominence, multiple pulmonary nodules in the right upper lobe measuring 8 mm with solid characteristics -Recommend CT follow-up outpatient -Trend CBC -Transfuse hemoglobin less than 7 -Monitor for signs of bleeding -SCDs to BLE while in bed -Avoid anticoagulants/antiplatelets for 24 hours post TPA administration The high probability of a clinically significant, sudden or life threatening deterioration of the [neuro] system(s) required my full and direct attention, intervention and personal management. The aggregate critical care time was [60] minutes. This time is in addition to time spent performing reported procedures but includes the following: [x] Data Review and interpretation [x] Patient assessment and monitoring of vital signs [x] Documentation [x] Medication orders and management Disposition Plan: icu, possible transfer to Total Time Spent with Patient (Minutes): 60 History Interval history: This is a 41-year-old female with obesity, HTN, asthma, anxiety, medication noncompliance who presented to emergency department with complaints of sudden onset of chest pain and shortness of breath, sudden onset of left arm and face weakness via private vehicle. Telemetry neurology was consulted in the emergency department patient was found to have clinical symptoms consistent with CVA initiated TPA protocol. CTA of her chest showed lung nodules which will need outpatient follow-up , scattered groundglass attenuation throughout bilateral lungs, chronic dilation of the main pulmonary artery, chronic mediastinal and left hilar lymph node prominence which will need outpatient follow-up but did not show pulmonary embolism. Patient received TPA yesterday and was admitted to the hospital service with consults to CCM to the ICU for 24 hours post TPA observation. 01/02: Neurology was consulted this morning, patient scheduled for [address] head. Coronavirus PCR pending. Patient complains of left heel pain upon ambulation and lidocaine patch ordered. Likely transfer to the floor this afternoon. Hospitalist Physical - Constitutional Vitals: Temp Pulse Resp BP Pulse Ox 99.1 F 82 33 H 149/77 92 01/02/22 11:40 01/02/22 08:00 01/02/22 08:00 01/02/22 08:00 01/02/22 08:58 General appearance: Present: no acute distress, obese - EENT Eyes: Present: PERRL, EOM intact ENT: hearing intact, clear oral mucosa, dentition normal - Neck Neck: Present: normal ROM - Respiratory Respiratory effort: normal Respiratory: bilateral: diminished - Cardiovascular Rhythm: regular Heart Sounds: Present: S1 & S2. Absent: systolic murmur, diastolic murmur - Extremities Extremities: no ischemia, pulses intact, pulses symmetrical, No edema, normal temperature, normal color Peripheral Pulses: within normal limits - Abdominal General gastrointestinal: soft, non-tender, non-distended, normal bowel sounds - Integumentary Integumentary: Present: warm, dry - Psychiatric Psychiatric: appropriate mood/affect, cooperative - Neurologic Neurologic: CNII-XII intact, focal deficits (left UE and LE numbness with UE drift), other - Allied Health Allied health notes reviewed: nursing, social work HEART Score - HEART Score Troponin: Troponin T < 0.010 ng/mL (0.00-0.029) 01/01/22 14:11 Troponin T < 0.010 ng/mL (0.00-0.029) 01/01/22 14:11 Results - Labs CBC & Chem 7: 01/01/22 14:11 01/01/22 14:11 Labs: Laboratory Last Values WBC 4.7 K/mm3 (4.5-11.0) 01/01/22 14:11 RBC 2.51 M/mm3 (3.65-5.03) L 01/01/22 14:11 Hgb 8.5 gm/dl (10.1-14.3) L 01/01/22 14:11 Hct 26.4 % (30.3-42.9) L 01/01/22 14:11 MCV 105 fl (79-97) H 01/01/22 14:11 MCH 34 pg (28-32) H 01/01/22 14:11 MCHC 32 % (30-34) 01/01/22 14:11 RDW 22.9 % (13.2-15.2) H 01/01/22 14:11 Plt Count 176 K/mm3 (140-440) 01/01/22 14:11 Lymph % (Auto) 13.3 % (13.4-35.0) L 01/01/22 14:11 Fannin % (Auto) 6.9 % (0.0-7.3) 01/01/22 14:11 Eos % (Auto) 0.7 % (0.0-4.3) 01/01/22 14:11 Baso % (Auto) 0.6 % (0.0-1.8) 01/01/22 14:11 Lymph # (Auto) 0.6 K/mm3 (1.2-5.4) L 01/01/22 14:11 Fannin # (Auto) 0.3 K/mm3 (0.0-0.8) 01/01/22 14:11 Eos # (Auto) 0.0 K/mm3 (0.0-0.4) 01/01/22 14:11 Baso # (Auto) 0.0 K/mm3 (0.0-0.1) 01/01/22 14:11 Seg Neutrophils % 78.5 % (40.0-70.0) H 01/01/22 14:11 Seg Neutrophils # 3.7 K/mm3 (1.8-7.7) 01/01/22 14:11 PT 14.0 Sec. (12.2-14.9) 01/01/22 14:11 INR 0.97 (0.87-1.13) 01/01/22 14:11 APTT 32.0 Sec. (24.2-36.6) 01/01/22 14:11 Thrombin Time 16.0 Sec. (15.1-19.6) 01/01/22 14:11 D-Dimer 682.42 ng/mlDDU (0-234) H 01/01/22 14:11 Sodium 137 mmol/L (137-145) 01/01/22 14:11 Potassium 3.5 mmol/L (3.6-5.0) L 01/01/22 14:11 Chloride 100.7 mmol/L (98-107) 01/01/22 14:11 Carbon Dioxide 26 mmol/L (22-30) 01/01/22 14:11 Anion Gap 14 mmol/L 01/01/22 14:11 BUN 10 mg/dL (7-17) 01/01/22 14:11 Creatinine 0.5 mg/dL (0.6-1.2) L 01/01/22 14:11 Estimated GFR > 60 ml/min 01/01/22 14:11 BUN/Creatinine Ratio 20 % 01/01/22 14:11 Glucose 101 mg/dL (65-100) H 01/01/22 14:11 Calcium 8.2 mg/dL (8.4-10.2) L 01/01/22 14:11 Total Bilirubin 1.70 mg/dL (0.1-1.2) H 01/01/22 14:11 AST 30 units/L (5-40) 01/01/22 14:11 ALT 11 units/L (7-56) 01/01/22 14:11 Alkaline Phosphatase 94 units/L (35-129) 01/01/22 14:11 Total Creatine Kinase 56 units/L (30-135) 01/01/22 14:11 CK-MB (CK-2) 1.4 ng/mL (0.0-4.0) 01/01/22 14:11 CK-MB (CK-2) Rel Index 2.5 (0-4) 01/01/22 14:11 Troponin T < 0.010 ng/mL (0.00-0.029) 01/01/22 14:11 Troponin T < 0.010 ng/mL (0.00-0.029) 01/01/22 14:11 Total Protein 7.2 g/dL (6.3-8.2) 01/01/22 14:11 Albumin 3.6 g/dL (3.9-5) L 01/01/22 14:11 Albumin/Globulin Ratio 1.0 % 01/01/22 14:11 Triglycerides 88 mg/dL (2-149) 01/02/22 04:40 Cholesterol 118 mg/dL (50-199) 01/02/22 04:40 LDL Cholesterol Direct 76 mg/dL (50-130) 01/02/22 04:40 HDL Cholesterol 29 mg/dL (40-59) L 01/02/22 04:40 Cholesterol/HDL Ratio 4.06 % 01/02/22 04:40 Urine Color Yellow (Yellow) 01/01/22 Unknown Urine Turbidity Clear (Clear) 01/01/22 Unknown Urine pH 7.0 (5.0-7.0) 01/01/22 Unknown Ur Specific Arnett 1.010 (1.003-1.030) 01/01/22 Unknown Urine Protein <15 mg/dl mg/dL (Negative) 01/01/22 Unknown Urine Glucose (UA) Negative mg/dL (Negative) 01/01/22 Unknown Urine Ketones Negative mg/dL (Negative) 01/01/22 Unknown Urine Blood Small (Negative) A 01/01/22 Unknown Urine Nitrite Negative (Negative) 01/01/22 Unknown Ur Reducing Substances Not Reportable 01/01/22 Unknown Urine Bilirubin Negative (Negative) 01/01/22 Unknown Urine Ictotest Not Reportable 01/01/22 Unknown Urine Urobilinogen 4.0 mg/dL (<2.0) 01/01/22 Unknown Ur Leukocyte Esterase Small (Negative) 01/01/22 Unknown Urine WBC (Auto) 1.0 /HPF (0.0-6.0) 01/01/22 Unknown Urine RBC (Auto) 5.0 /HPF (0.0-6.0) 01/01/22 Unknown U Epithel Cells (Auto) 3.0 /HPF (0-13.0) 01/01/22 Unknown Urine Opiates Screen Negative 01/01/22 Unknown Urine Methadone Screen Negative 01/01/22 Unknown Ur Barbiturates Screen Negative 01/01/22 Unknown Ur Phencyclidine Scrn Negative 01/01/22 Unknown Ur Amphetamines Screen Negative 01/01/22 Unknown U Benzodiazepines Scrn Negative 01/01/22 Unknown Urine Cocaine Screen Negative 01/01/22 Unknown U Marijuana (THC) Screen Negative 01/01/22 Unknown Drugs of Abuse Note Disclamer 01/01/22 Unknown Casas/IV: Voiding Method External Female Catheter Active Medications - Current Medications Current Medications: Generic Name Dose Route Start Last Admin Trade Name Freq PRN Reason Stop Dose Admin Acetaminophen 650 mg 01/01/22 16:27 Acetaminophen 325 Mg Tab PO Q4H PRN Pain, Mild (1-3) Atorvastatin Calcium 40 mg 01/01/22 22:00 01/01/22 22:58 Atorvastatin 40 Mg Tab PO 40 mg QHS JEFF Administration Bisacodyl 10 mg 01/01/22 16:27 Bisacodyl 10 Mg Rect Supp MD QDAY PRN Constipation Escitalopram Oxalate 20 mg 01/02/22 22:00 Escitalopram 10 Mg Tab PO HS JEFF Famotidine 20 mg 01/03/22 10:00 Famotidine 20 Mg Tab PO QDAY JEFF Lidocaine 1 each 01/02/22 14:00 Lidocaine 5% 1 Each Patch TD 01/04/22 13:59 QDAY JEFF Magnesium Hydroxide 30 ml 01/01/22 16:27 Magnesium Hydroxide (Mom) Oral Liqd Udc PO Q4H PRN Constipation Ondansetron HCl 4 mg 01/01/22 16:27 Ondansetron 4 Mg/2 Ml Inj IV Q8H PRN Nausea And Vomiting Sodium Chloride 10 ml 01/01/22 16:27 01/01/22 23:22 Sodium Chloride 0.9% 10 Ml Flush Syringe IV 10 ml PRN PRN Administration LINE FLUSH Trazodone HCl 200 mg 01/02/22 22:00 Trazodone 100 Mg Tab PO QHS JEFF
[2022-01-02] MEDS: LIDOCAINE 5% 1 EACH PATCH TD SCH (14:55)
[2022-01-02] MEDS ORDERED: POTASSIUM CHLORIDE ER 20 MEQ TAB PO ONE (14:59)
--- NOTE | 2022-01-02 16:16 | Cat Scan Report ---
CT head/brain wo con INDICATION / CLINICAL INFORMATION: 41 years Female; 24 hr s/p TPA Call report Dr Coffey . 24 hours post tPA therapy TECHNIQUE: Routine CT head without contrast. All CT scans at this location are performed using CT dos e reduction for ALARA by means of automated exposure control. COMPARISON: 01/01/2022 FINDINGS: BRAIN / INTRACRANIAL CONTENTS: No acute hemorrhage, mass effect, midline shift, hydrocephalus, or acu te, large territorial infarct. No signs of significant atrophy or chronic infarct. No significant whi te matter abnormality seen. CRANIOCERVICAL JUNCTION: No significant abnormality. ORBITS: No significant abnormality of visualized orbits. SINUSES / MASTOIDS: Mucous retention cyst/polyp seen in the right maxillary antrum. ADDITIONAL FINDINGS: Prominent soft tissue is seen in the roof the nasopharynx, presumably related to reactive adenoidal tissue. Please clinically correlate. IMPRESSION: 1. No focal mass, hemorrhage, hydrocephalus, or acute, large territorial infarct. COMMUNICATION: Time of Communication (PRODUCTION DISPATCHER/CDT): 3:10 PM at the time of dictation. Note, the study was completed at 3 :01 PM, central standard time. Licensed Practitioner Receiving Report: Cyn the patient's nurse Signer Name: Mark Tirado MD, III Signed: 01/02/2022 4:12 PM Workstation Name: [id number]
--- NOTE | 2022-01-02 17:58 | XRay Report ---
Left foot, single lateral view provided. HISTORY: Heel pain COMPARISON: None available FINDINGS: Examination is limited due to lack of tangential imaging. Bones/joints: Postoperative changes of hindfoot arthrodesis with mild lucency along the talocalcaneal screw. There is retrograde migration measuring 1.1 cm. Findings are suspicious for hardware loosenin g. Other hardware in the hindfoot is intact. Additional postsurgical changes of the first metatarsal head. Adjacent punctate metallic densities ma y be postsurgical. No aggressive cortical destructive changes to suggest osteomyelitis. Small noninfl ammatory plantar and dorsal calcaneal enthesophytes. Soft tissues: There is diffuse soft tissue swelling of the foot. No soft tissue gas. No radiopaque fo reign body identified in the heel pad. Signer Name: Juanpablo Thomas MD Signed: 01/02/2022 5:54 PM Workstation Name: [id number]
[2022-01-02] MEDS: DOCUSATE SODIUM 100 MG CAP PO SCH (21:23)
[2022-01-02] MEDS: traZODone 100 MG TAB PO SCH (21:23)
[2022-01-02] MEDS: ESCITALOPRAM 10 MG TAB PO SCH (22:20)
[2022-01-03 07:32] LABS: Hematocrit 26.5 % (30.3-42.9); Hemoglobin 8.6 gm/dl (10.1-14.3); Mean Corpuscular HGB Conc 32 % (30-34); Mean Corpuscular Volume 106 fl (79-97); Platelet Count 200 K/mm3 (140-440); Red Blood Count 2.51 M/mm3 (3.65-5.03)
[2022-01-03 07:33] LABS: Red Cell Distribution Width 23.4 % (13.2-15.2)
[2022-01-03 07:52] LABS: Alanine Aminotransferase 10 units/L (7-56); Albumin 3.7 g/dL (3.9-5); Blood Urea Nitrogen 7 mg/dL (7-17); Calcium 8.4 mg/dL (8.4-10.2); Hemolysis Index 10
[2022-01-03 07:56] LABS: BUN/Creatinine Ratio 14
[2022-01-03] MEDS: FAMOTIDINE 20 MG TAB PO SCH (09:08)
[2022-01-03] MEDS: DOCUSATE SODIUM 100 MG CAP PO SCH ×3 (09:08→21:28)
[2022-01-03] MEDS: LIDOCAINE 5% 1 EACH PATCH TD SCH ×2 (09:09→09:12)
[2022-01-03] MEDS ORDERED: LORazepam 2 MG/ML VIAL IV NR (09:56)
--- NOTE | 2022-01-03 11:20 | Electrocardiograph Report ---
[facility] Test Date: 2022-01-01 Test Time: 14:59:29 Pat Name: MAGO AARON Department: Room: A357 Gender: F Occup Therapist: KEESHA : 1980 Requested By: LE RAPHAEL Order Number: [id number] Reading MD: Mayito Whitney Measurements Intervals [place] Rate: 94 P: 49 PA: 154 QRS: 27 QRSD: 89 T: 137 QT: 356 QTc: 445 Interpretive Statements Sinus rhythm Nonspecific T abnormalities, lateral leads No previous ECG available for comparison Electronically Signed On 01-03-2022 11:20:00 EDT by Mayito Whitney
--- NOTE | 2022-01-03 12:22 | Progress Note ---
Assessment and Plan Assessment and Plan 41 YO Female with Obesity, HTN, Medication Noncompliance presents ED for evaluation. Patient reports that she experienced a sudden onset of pain in her chest and shortness of breath today. Patient also acknowledges sudden onset left arm and face weakness after rising from a seated position. - Patient Problems # New onset CP and left arm numbness and weakness -R/O CVA (cerebral vascular accident) -was given TPA in ER -Initial NIH#7 -- today is #1 related to subjective sensory impairment and left upper give away weakness with no pronation!! -Initial BP #245/113 -CT brain and CTA brain and neck are unremarkable -LDL#76 -Echo is pending -MRI brain is pending { need ativan before MRI due to anxiety } -Pt/ST evaluate -repeat CT brain study in 24 hours is unremarkable # Accelerated hypertension -Initial BP#245/113 -Monitor blood pressure every shift, continue medical management. # Hx of underlying anxiety - followed by psychiatry -On lexapro #20 mg and trazdon #200 mg qhs # Left foot surgery -with xray is noted- loose hardware -she is asking for pain medications -scheduled to see her orthopedics # Noncompliance Patient counseled. Patient acknowledges understanding instructions. # Obesity -Balanced diet, increase physical activity discharge. Patient with endocrine chart is not accurate. Daily weight. # Atypical chest pain -D-dimer some what elevated #682 - CT angio chest abnormal -RO/COVID-19 # DVT prophylaxis -SCD to bilateral lower extremities while in bed Plan 1- Brain MRI 2- ASA 81 mg and lipitor 40 mg 3- restart her lexapro and trazdon 4- PT/ST evaluate 5- BP below 200/100 for 24 hours then gradual decrease to 150/80 6- compliance with BP medications 7- Orthopedic to see Subjective Date of service: 01/03/22 Interval history: status is same she is still complain of left side weakness MRI brain is pending complains of left foot pain she is placed on Tylenol and hydrocarbon according to her not helping Hg#8 echo is pending LDL#76 Objective - Vital Sign Vital Signs - 12hr 01/03/22 01/03/22 01/03/22 04:24 04:42 11:33 Temperature 98.6 F Pulse Rate 87 Respiratory 18 20 Rate Blood Pressure 135/72 O2 Sat by Pulse 86 95 96 Oximetry - General Apperance Constitutional: comfortable - EENT EENT: PERRL, mucous membranes moist - Respiratory Respiratory: lungs clear, rhonchi - Cardiovascular Cardiovascular: regular rate, normal S1, normal S2 Extremities: no peripheral edema bilat, no clubbing, cyanosis - Gastrointestinal Gastrointestinal: normoactive bowel sounds - Integumentary Integumentary: normal - Neurologic Cranial nerve examination: PERRL, EOMI, intact Speech examination: intact Detailed motor examination: grossly full strength in, other (with give away weakness without pronator drift ) - Laboratory Findings CBC and BMP: 01/03/22 07:09 01/03/22 07:09 Abnormal Lab Findings: Abnormal Labs 01/01/22 01/01/22 01/01/22 14:11 14:11 14:11 WBC RBC 2.51 L Hgb 8.5 L Hct 26.4 L MCV 105 H MCH 34 H RDW 22.9 H Lymph % (Auto) 13.3 L Lymph # (Auto) 0.6 L Seg Neutrophils % 78.5 H D-Dimer 682.42 H Potassium 3.5 L Creatinine 0.5 L Glucose 101 H Calcium 8.2 L Total Bilirubin 1.70 H Albumin 3.6 L HDL Cholesterol Urine Blood 01/01/22 01/02/22 01/03/22 Unknown 04:40 07:09 WBC 3.8 L RBC 2.51 L Hgb 8.6 L Hct 26.5 L MCV 106 H MCH 34 H RDW 23.4 H Lymph % (Auto) Lymph # (Auto) Seg Neutrophils % D-Dimer Potassium Creatinine Glucose Calcium Total Bilirubin Albumin HDL Cholesterol 29 L Urine Blood Small A 01/03/22 07:09 WBC RBC Hgb Hct MCV MCH RDW Lymph % (Auto) Lymph # (Auto) Seg Neutrophils % D-Dimer Potassium Creatinine 0.5 L Glucose Calcium Total Bilirubin 1.90 H Albumin 3.7 L HDL Cholesterol Urine Blood
[2022-01-03] MEDS ORDERED: LORazepam 2 MG/ML VIAL IV ONE ×2 (14:00→15:55)
[2022-01-03] MEDS ORDERED: MORPHINE 2 MG/1 ML INJ IV ONE (14:00)
[2022-01-03] MEDS: oxyCODONE /ACETAMINOPHEN 5-325MG TAB PO PRN (17:36)
--- NOTE | 2022-01-03 17:40 | Vascular Lab Report ---
DUPLEX DOPPLER LOWER EXTREMITY VEINS, LEFT INDICATION / CLINICAL INFORMATION: Assess for possible DVT. TECHNIQUE: Duplex doppler imaging was performed through the veins of the left lower extremity using v enous compression and other maneuvers. COMPARISON: None available. FINDINGS: LEFT COMMON FEMORAL VEIN: Negative. LEFT FEMORAL VEIN: Negative. LEFT POPLITEAL VEIN: Negative. LEFT CALF VEINS: Negative. ADDITIONAL FINDINGS: None. IMPRESSION: 1. No sonographic evidence for DVT in the left lower extremity. Signer Name: Hernando Bone DO Signed: 01/03/2022 5:35 PM Workstation Name: [id number]
--- NOTE | 2022-01-03 17:40 | Vascular Lab Report ---
DUPLEX DOPPLER LOWER EXTREMITY ARTERIAL, LEFT INDICATION / CLINICAL INFORMATION: Assess for arterial insufficiency. TECHNIQUE: Arterial duplex examination of both lower extremities performed using B-mode, color flow a nd spectral Doppler assessment. FINDINGS: LEFT: - Atherosclerotic Plaque: No significant atherosclerotic plaque. - Elevated Velocity (>200 cm/s): None. - Abnormal Waveform: None. ADDITIONAL FINDINGS: None. Left RESHMA: Not calculated IMPRESSION: 1. No significant lower extremity peripheral artery disease. Ankle-Brachial Index (RESHMA): - Calcified arteries > 1.4 - Normal = 0.9-1.4 - Mild PAD = 0.7-0.89 - Moderate PAD = 0.51-0.69 - Severe PAD < 0.5 Doppler Waveform: - Triphasic is normal. - Biphasic is abnormal if clear transition from triphasic signal along vascular tree. - Monophasic is abnormal. Signer Name: Hernando Bone DO Signed: 01/03/2022 5:36 PM Workstation Name: [id number]
--- NOTE | 2022-01-03 18:27 | Progress Note ---
Assessment and Plan Assessment and plan: This is a 41-year-old female with obesity, HTN, medication noncompliance, asthma admitted with rule out CVA s/p TPA #Acute CVA status post TPA -Neurology consulted, appreciate recommendation -CT head on admit showed no intracerebral hemorrhage or stroke mimics -CTA neck/head showed no significant abnormality -Bilateral carotid ultrasound showed less than 50% diameter stenosis -PT/OT/ST consulted, appreciate recommendations. Physical therapy recommending acute rehab. -TTE revealing EF 30-35% with no PFO visualized Patient refused MRI brain despite multiple attempts and administrations of IV Ativan for anxiety -Continue atorvastatin 40 mg daily and aspirin 81 mg daily #Anxiety #Insomnia -Continue home Lexapro and trazodone #Hypertensive urgencyresolved Continue antihypertensives #Acute hypoxic respiratory failureresolved #Possible obesity hypoventilation syndrome - recommend outpatient follow-up with pulmonology #Obesity #Weight loss counseling #Exercise counseling - BMI 37.4 - Counseled patient on the importance of weight loss, incorporating exercise, an d dietary changes (lean meats, fresh fruits and vegetables, and water intake). Patient expresses understanding. - Time: + 15 min #Hypokalemiaresolved -Potassium 4.1 #COVID-19 PUIresolved -COVID-19 PCR unremarkable -Patient states that she was vaccinated with Moderna x2 and received a booster shot Mention elevated D-dimer -Admit D-dimer 682, presented with sudden onset of chest pain, shortness of breath -CTA chest showed no pulmonary embolism, scattered groundglass attenuation throughout bilateral lungs, chronic dilation of main pulmonary artery suggesting pulmonary arterial hypertension, chronic mediastinal and right hilar lymph node prominence, multiple pulmonary nodules in the right upper lobe measuring 8 mm with solid characteristics -Recommend CT follow-up outpatient Venous Doppler of left lower extremity negative for DVT #Advanced care planning -Disease education conducted, care plan discussed, diagnoses discussed, prognosis discussed, and patient acknowledges understanding with care plan -Time: +30 min Disposition Plan: Continue medical management Total Time Spent with Patient (Minutes): 30 minutes History Interval history: No acute events overnight. Hospitalist Physical - Constitutional Vitals: Temp Pulse Resp BP Pulse Ox 98.6 F 87 20 135/72 96 01/03/22 04:24 01/03/22 04:24 01/03/22 04:42 01/03/22 04:24 01/03/22 11:33 General appearance: Present: no acute distress, well-nourished, obese - EENT Eyes: Present: PERRL, EOM intact ENT: hearing intact, clear oral mucosa, dentition normal - Neck Neck: Present: supple, normal ROM - Respiratory Respiratory effort: normal Respiratory: bilateral: diminished - Cardiovascular Rhythm: regular Heart Sounds: Present: S1 & S2 - Extremities Extremities: no ischemia, pulses intact, pulses symmetrical, No edema, normal temperature Extremity abnormal: erythema (Increased erythema of left lower extremity (lower wright and foot)) Peripheral Pulses: within normal limits - Abdominal General gastrointestinal: soft, non-tender, non-distended, normal bowel sounds - Integumentary Integumentary: Present: clear, warm, dry - Psychiatric Psychiatric: appropriate mood/affect, intact judgment & insight, memory intact, cooperative - Neurologic Neurologic: CNII-XII intact, moves all extremities - Allied Health Allied health notes reviewed: nursing HEART Score - HEART Score Troponin: Troponin T < 0.010 ng/mL (0.00-0.029) 01/01/22 14:11 Troponin T < 0.010 ng/mL (0.00-0.029) 01/01/22 14:11 Results - Labs CBC & Chem 7: 01/03/22 07:09 01/03/22 07:09 Labs: Laboratory Last Values WBC 3.8 K/mm3 (4.5-11.0) L 01/03/22 07:09 RBC 2.51 M/mm3 (3.65-5.03) L 01/03/22 07:09 Hgb 8.6 gm/dl (10.1-14.3) L 01/03/22 07:09 Hct 26.5 % (30.3-42.9) L 01/03/22 07:09 MCV 106 fl (79-97) H 01/03/22 07:09 MCH 34 pg (28-32) H 01/03/22 07:09 MCHC 32 % (30-34) 01/03/22 07:09 RDW 23.4 % (13.2-15.2) H 01/03/22 07:09 Plt Count 200 K/mm3 (140-440) 01/03/22 07:09 Lymph % (Auto) 13.3 % (13.4-35.0) L 01/01/22 14:11 [place] % (Auto) 6.9 % (0.0-7.3) 01/01/22 14:11 Eos % (Auto) 0.7 % (0.0-4.3) 01/01/22 14:11 Baso % (Auto) 0.6 % (0.0-1.8) 01/01/22 14:11 Lymph # (Auto) 0.6 K/mm3 (1.2-5.4) L 01/01/22 14:11 [place] # (Auto) 0.3 K/mm3 (0.0-0.8) 01/01/22 14:11 Eos # (Auto) 0.0 K/mm3 (0.0-0.4) 01/01/22 14:11 Baso # (Auto) 0.0 K/mm3 (0.0-0.1) 01/01/22 14:11 Seg Neutrophils % 78.5 % (40.0-70.0) H 01/01/22 14:11 Seg Neutrophils # 3.7 K/mm3 (1.8-7.7) 01/01/22 14:11 PT 14.0 Sec. (12.2-14.9) 01/01/22 14:11 INR 0.97 (0.87-1.13) 01/01/22 14:11 APTT 32.0 Sec. (24.2-36.6) 01/01/22 14:11 Thrombin Time 16.0 Sec. (15.1-19.6) 01/01/22 14:11 D-Dimer 682.42 ng/mlDDU (0-234) H 01/01/22 14:11 Sodium 141 mmol/L (137-145) 01/03/22 07:09 Potassium 4.1 mmol/L (3.6-5.0) 01/03/22 07:09 Chloride 104.9 mmol/L (98-107) 01/03/22 07:09 Carbon Dioxide 26 mmol/L (22-30) 01/03/22 07:09 Anion Gap 14 mmol/L 01/03/22 07:09 BUN 7 mg/dL (7-17) 01/03/22 07:09 Creatinine 0.5 mg/dL (0.6-1.2) L 01/03/22 07:09 Estimated GFR > 60 ml/min 01/03/22 07:09 BUN/Creatinine Ratio 14 % 01/03/22 07:09 Glucose 92 mg/dL (65-100) 01/03/22 07:09 POC Glucose 103 mg/dL (70-105) 01/02/22 11:11 Calcium 8.4 mg/dL (8.4-10.2) 01/03/22 07:09 Total Bilirubin 1.90 mg/dL (0.1-1.2) H 01/03/22 07:09 AST 28 units/L (5-40) 01/03/22 07:09 ALT 10 units/L (7-56) 01/03/22 07:09 Alkaline Phosphatase 91 units/L (35-129) 01/03/22 07:09 Total Creatine Kinase 56 units/L (30-135) 01/01/22 14:11 CK-MB (CK-2) 1.4 ng/mL (0.0-4.0) 01/01/22 14:11 CK-MB (CK-2) Rel Index 2.5 (0-4) 01/01/22 14:11 Troponin T < 0.010 ng/mL (0.00-0.029) 01/01/22 14:11 Troponin T < 0.010 ng/mL (0.00-0.029) 01/01/22 14:11 Total Protein 7.4 g/dL (6.3-8.2) 01/03/22 07:09 Albumin 3.7 g/dL (3.9-5) L 01/03/22 07:09 Albumin/Globulin Ratio 1.0 % 01/03/22 07:09 Triglycerides 88 mg/dL (2-149) 01/02/22 04:40 Cholesterol 118 mg/dL (50-199) 01/02/22 04:40 LDL Cholesterol Direct 76 mg/dL (50-130) 01/02/22 04:40 HDL Cholesterol 29 mg/dL (40-59) L 01/02/22 04:40 Cholesterol/HDL Ratio 4.06 % 01/02/22 04:40 Urine Color Yellow (Yellow) 01/01/22 Unknown Urine Turbidity Clear (Clear) 01/01/22 Unknown Urine pH 7.0 (5.0-7.0) 01/01/22 Unknown Ur Specific [place] 1.010 (1.003-1.030) 01/01/22 Unknown Urine Protein <15 mg/dl mg/dL (Negative) 01/01/22 Unknown Urine Glucose (UA) Negative mg/dL (Negative) 01/01/22 Unknown Urine Ketones Negative mg/dL (Negative) 01/01/22 Unknown Urine Blood Small (Negative) A 01/01/22 Unknown Urine Nitrite Negative (Negative) 01/01/22 Unknown Ur Reducing Substances Not Reportable 01/01/22 Unknown Urine Bilirubin Negative (Negative) 01/01/22 Unknown Urine Ictotest Not Reportable 01/01/22 Unknown Urine Urobilinogen 4.0 mg/dL (<2.0) 01/01/22 Unknown Ur Leukocyte Esterase Small (Negative) 01/01/22 Unknown Urine WBC (Auto) 1.0 /HPF (0.0-6.0) 01/01/22 Unknown Urine RBC (Auto) 5.0 /HPF (0.0-6.0) 01/01/22 Unknown U Epithel Cells (Auto) 3.0 /HPF (0-13.0) 01/01/22 Unknown Urine Opiates Screen Negative 01/01/22 Unknown Urine Methadone Screen Negative 01/01/22 Unknown Ur Barbiturates Screen Negative 01/01/22 Unknown Ur Phencyclidine Scrn Negative 01/01/22 Unknown Ur Amphetamines Screen Negative 01/01/22 Unknown U Benzodiazepines Scrn Negative 01/01/22 Unknown Urine Cocaine Screen Negative 01/01/22 Unknown U Marijuana (THC) Screen Negative 01/01/22 Unknown Drugs of Abuse Note Disclamer 01/01/22 Unknown Coronavirus (PCR) Negative (Negative) 01/03/22 08:00 Casas/IV: Voiding Method Bedside Commode Active Medications - Current Medications Current Medications: Generic Name Dose Route Start Last Admin Trade Name Freq PRN Reason Stop Dose Admin Acetaminophen 650 mg 01/01/22 16:27 Acetaminophen 325 Mg Tab PO Q4H PRN Pain, Mild (1-3) Atorvastatin Calcium 40 mg 01/01/22 22:00 01/02/22 21:23 Atorvastatin 40 Mg Tab PO 40 mg QHS JEFF Administration Bisacodyl 10 mg 01/01/22 16:27 Bisacodyl 10 Mg Rect Supp GA QDAY PRN Constipation Docusate Sodium 100 mg 01/02/22 22:00 01/03/22 12:00 Docusate Sodium 100 Mg Cap PO Not Given BID JEFF Escitalopram Oxalate 20 mg 01/02/22 22:00 01/02/22 22:20 Escitalopram 10 Mg Tab PO 20 mg HS JEFF Administration Famotidine 20 mg 01/03/22 10:00 01/03/22 09:08 Famotidine 20 Mg Tab PO 20 mg QDAY JEFF Administration Hydromorphone HCl 1 mg 01/03/22 12:40 Hydromorphone 1 Mg/1 Ml Inj IV Q4H PRN Pain , Severe (7-10) Lidocaine 1 each 01/02/22 14:00 01/03/22 09:12 Lidocaine 5% 1 Each Patch TD 01/04/22 13:59 Not Given QDAY [facility] Magnesium Hydroxide 30 ml 01/01/22 16:27 Magnesium Hydroxide (Mom) Oral Liqd Udc PO Q4H PRN Constipation Ondansetron HCl 4 mg 01/01/22 16:27 Ondansetron 4 Mg/2 Ml Inj IV Q8H PRN Nausea And Vomiting Oxycodone/Acetaminophen 1 tab 01/03/22 12:40 01/03/22 17:36 Oxycodone /Acetaminophen 5-325mg Tab PO 1 tab Q6H PRN Administration Pain, Moderate (4-6) Sodium Chloride 10 ml 01/01/22 16:27 01/03/22 09:13 Sodium Chloride 0.9% 10 Ml Flush Syringe IV 10 ml PRN PRN Administration LINE FLUSH Trazodone HCl 200 mg 01/02/22 22:00 01/02/22 21:23 Trazodone 100 Mg Tab PO 200 mg QHS JEFF Administration
[2022-01-03] MEDS: ESCITALOPRAM 10 MG TAB PO SCH (21:27)
[2022-01-03] MEDS: traZODone 100 MG TAB PO SCH (21:28)
[2022-01-03] MEDS: HYDROmorphone 1 MG/1 ML INJ IV PRN (21:29)
[2022-01-04 08:24] LABS: Blood Urea Nitrogen 9 mg/dL (7-17); Calcium 8.5 mg/dL (8.4-10.2); Hemolysis Index 2
[2022-01-04 08:31] LABS: BUN/Creatinine Ratio 23
[2022-01-04] MEDS: FAMOTIDINE 20 MG TAB PO SCH (09:53)
[2022-01-04] MEDS: DOCUSATE SODIUM 100 MG CAP PO SCH ×2 (09:53→21:48)
[2022-01-04] MEDS: LIDOCAINE 5% 1 EACH PATCH TD SCH (09:54)
[2022-01-04] MEDS: HYDROmorphone 1 MG/1 ML INJ IV PRN ×4 (09:54→23:13)
--- NOTE | 2022-01-04 10:48 | Progress Note ---
Assessment and Plan Assessment and Plan 41 YO Female with Obesity, HTN, Medication Noncompliance presents ED for evaluation. Patient reports that she experienced a sudden onset of pain in her chest and shortness of breath today. Patient also acknowledges sudden onset left arm and face weakness after rising from a seated position. - Patient Problems # New onset CP and left arm numbness and weakness -R/O CVA (cerebral vascular accident) -was given TPA in ER -Initial NIH#7 -- today is #1 related to subjective sensory impairment and left upper give away weakness with no pronation!! -Initial BP #245/113 -CT brain and CTA brain and neck are unremarkable -LDL#76 -Echo is 50-55% -MRI brain is pending { need ativan before MRI due to anxiety } -Pt/ST evaluate -repeat CT brain study in 24 hours is unremarkable # Accelerated hypertension -Initial BP#245/113 -Monitor blood pressure every shift, continue medical management. # Hx of underlying anxiety - followed by psychiatry -On lexapro #20 mg and trazdon #200 mg qhs # Left foot surgery -with xray is noted- loose hardware -she is asking for pain medications -scheduled to see her orthopedics # Noncompliance Patient counseled. Patient acknowledges understanding instructions. # Obesity -Balanced diet, increase physical activity discharge. Patient with endocrine chart is not accurate. Daily weight. # Atypical chest pain -D-dimer some what elevated #682 - CT angio chest abnormal -RO/COVID-19-- test negative # DVT prophylaxis -SCD to bilateral lower extremities while in bed Plan 1- Brain MRI pt. is willing to try again today 2- ASA 81 mg and lipitor 40 mg 3- restart her lexapro and trazdon 4- PT/ST evaluate 5- BP below 200/100 for 24 hours then gradual decrease to 150/80 6- compliance with BP medications 7- Orthopedic to see re left foot Subjective Date of service: 01/04/22 Interval history: status is same she is still complain of left side weakness MRI brain is pending complains of left foot pain she is placed on Tylenol and hydrocarbon according to her not helping Hg#8 echo is with EF#50-55% LDL#76 ++ pt. wants to try getting MRI brain again today !! Objective - Vital Sign Vital Signs - 12hr 01/03/22 01/04/22 23:30 04:08 Temperature 98.2 F Pulse Rate 77 Respiratory 20 Rate Blood Pressure 139/82 [Left] O2 Sat by Pulse 93 95 Oximetry - General Apperance Constitutional: comfortable - EENT EENT: PERRL, mucous membranes moist - Respiratory Respiratory: lungs clear, rhonchi - Cardiovascular Cardiovascular: regular rate, normal S1, normal S2 Extremities: no peripheral edema bilat, no clubbing, cyanosis - Gastrointestinal Gastrointestinal: normoactive bowel sounds - Integumentary Integumentary: normal - Neurologic Cranial nerve examination: PERRL, EOMI, intact Speech examination: intact Detailed motor examination: grossly full strength in, other (reflexes are suppressed , gait not done) - Laboratory Findings CBC and BMP: 01/03/22 07:09 01/04/22 07:00 Abnormal Lab Findings: Abnormal Labs 01/01/22 01/01/22 01/01/22 14:11 14:11 14:11 WBC RBC 2.51 L Hgb 8.5 L Hct 26.4 L MCV 105 H MCH 34 H RDW 22.9 H Lymph % (Auto) 13.3 L Lymph # (Auto) 0.6 L Seg Neutrophils % 78.5 H D-Dimer 682.42 H Potassium 3.5 L Creatinine 0.5 L Glucose 101 H Calcium 8.2 L Total Bilirubin 1.70 H Albumin 3.6 L HDL Cholesterol Urine Blood 01/01/22 01/02/22 01/03/22 Unknown 04:40 07:09 WBC 3.8 L RBC 2.51 L Hgb 8.6 L Hct 26.5 L MCV 106 H MCH 34 H RDW 23.4 H Lymph % (Auto) Lymph # (Auto) Seg Neutrophils % D-Dimer Potassium Creatinine Glucose Calcium Total Bilirubin Albumin HDL Cholesterol 29 L Urine Blood Small A 01/03/22 01/04/22 07:09 07:00 WBC RBC Hgb Hct MCV MCH RDW Lymph % (Auto) Lymph # (Auto) Seg Neutrophils % D-Dimer Potassium Creatinine 0.5 L 0.4 L Glucose Calcium Total Bilirubin 1.90 H Albumin 3.7 L HDL Cholesterol Urine Blood
[2022-01-04] MEDS ORDERED: LORazepam 2 MG/ML VIAL IV ONE (11:20)
--- NOTE | 2022-01-04 13:42 | Magnetic Resonance Report ---
MRI BRAIN WITHOUT AND WITH CONTRAST INDICATION / CLINICAL INFORMATION: cva. TECHNIQUE: Multiplanar, multisequence MR images of the brain were obtained. Contrast: Clairscan: Volume not specified, administered intravenously. COMPARISON: Head CT 01/02/2022 FINDINGS: Limitations: This study is limited by patient motion artifact. BRAIN / INTRACRANIAL CONTENTS: Ventricles and cortical sulci are normal in size and configuration. Th ere is no mass effect. No evidence of intracranial hemorrhage or extra-axial fluid collection is seen . No significant areas of abnormal brain parenchymal signal intensity are identified. There is no ind ication of remote cortical infarction. Diffusion weighted scans are negative. There is no indication of acute ischemic injury. The brainstem and cerebellum have an unremarkable appearance. MIDLINE STRUCTURES:No abnormalities are seen to involve the pituitary gland. Pineal region has an unr emarkable appearance. CRANIOCERVICAL JUNCTION: Abnormal signal intensity is observed at the craniocervical junction on T2 F LAIR sagittal and axial images. Findings suggest the presence of a joint effusion at the atlantoaxial joint as well. No abnormalities are seen in this region on other pulse sequences. CTA neck allows go od evaluation of this region on computed tomographic study. No abnormalities are identified. While th e findings on FLAIR imaging of an inflammatory process at the craniocervical junction cannot excluded . Consider MRI cervical spine without and with intravenous contrast for further evaluation. VASCULAR FLOW-VOIDS: Normal flow-voids are present within the major intracranial vessels. ORBITS: The orbits have an unremarkable appearance. SINUSES / MASTOIDS: There is no indication of inflammatory disease in the paranasal sinuses or mastoi d air cells. Following the administration of intravenous contrast enhancement of normal vascular structures is dem onstrated. No areas of abnormal contrast enhancement are identified. IMPRESSION: 1. Study is limited by patient motion artifact. 2. No significant intercranial abnormality. 3. Signal changes at the craniocervical junction and atlantoaxial junction suggesting possible joint effusions. Possibility of inflammatory arthritic process be considered. Consider further evaluation w [facility] MRI cervical spine without and with intravenous contrast material. Signer Name: Carroll Oakley MD Signed: 01/04/2022 1:37 PM Workstation Name: [id number]
[2022-01-04] MEDS: oxyCODONE /ACETAMINOPHEN 5-325MG TAB PO PRN (17:53)
--- NOTE | 2022-01-04 21:37 | Progress Note ---
Assessment and Plan Assessment and plan: This is a 41-year-old female with obesity, HTN, medication noncompliance, asthma admitted with rule out CVA s/p TPA #Acute CVA status post TPA -Neurology consulted, appreciate recommendation -CT head on admit showed no intracerebral hemorrhage or stroke mimics -CTA neck/head showed no significant abnormality -Bilateral carotid ultrasound showed less than 50% diameter stenosis -PT/OT/ST consulted, appreciate recommendations. Physical therapy recommending acute rehab. -TTE revealing EF 30-35% with no PFO visualized Patient refused MRI brain despite multiple attempts and administrations of IV Ativan for anxiety -Continue atorvastatin 40 mg daily and aspirin 81 mg daily #Possible seizure Concern of patient experiencing seizure of less than 1 minute at the bedside (visualized by nurse and nurse tech) Neurology contacted about possible seizure; pending recommendations. Patient denies any seizure history. Continue to monitor. #Anxiety #Insomnia -Continue home Lexapro and trazodone #Hypertensive urgencyresolved Continue antihypertensives #Acute hypoxic respiratory failureresolved #Possible obesity hypoventilation syndrome - recommend outpatient follow-up with pulmonology #Obesity #Weight loss counseling #Exercise counseling - BMI 37.4 - Counseled patient on the importance of weight loss, incorporating exercise, and dietary changes (lean meats, fresh fruits and vegetables, and water intake). Patient expresses understanding. - Time: + 15 min #Hypokalemiaresolved -Potassium 4.1 #COVID-19 PUIresolved -COVID-19 PCR unremarkable -Patient states that she was vaccinated with Moderna x2 and received a booster shot #elevated D-dimer -Admit D-dimer 682, presented with sudden onset of chest pain, shortness of breath -CTA chest showed no pulmonary embolism, scattered groundglass attenuation throughout bilateral lungs, chronic dilation of main pulmonary artery suggesting pulmonary arterial hypertension, chronic mediastinal and right hilar lymph node prominence, multiple pulmonary nodules in the right upper lobe measuring 8 mm with solid characteristics -Recommend CT follow-up outpatient Venous Doppler of left lower extremity negative for DVT #Advanced care planning -Disease education conducted, care plan discussed, diagnoses discussed, prognosis discussed, and patient acknowledges understanding with care plan -Time: +30 min Disposition Plan: continue medical management Total Time Spent with Patient (Minutes): 30 minutes History Interval history: No acute events overnight. Hospitalist Physical - Constitutional Vitals: Temp Pulse Resp BP Pulse Ox 98.5 F 94 H 18 144/84 94 01/04/22 13:55 01/04/22 13:55 01/04/22 13:55 01/04/22 13:55 01/04/22 13:55 General appearance: Present: no acute distress, well-nourished, obese - EENT Eyes: Present: PERRL, EOM intact ENT: hearing intact, clear oral mucosa, dentition normal - Neck Neck: Present: supple, normal ROM - Respiratory Respiratory effort: normal Respiratory: bilateral: CTA - Cardiovascular Rhythm: regular Heart Sounds: Present: S1 & S2 - Extremities Extremities: no ischemia, pulses intact, pulses symmetrical, No edema, normal temperature, normal color, Full ROM (Tenderness left ankle) Peripheral Pulses: within normal limits - Abdominal General gastrointestinal: soft, non-tender, non-distended, normal bowel sounds - Integumentary Integumentary: Present: clear, warm, dry - Psychiatric Psychiatric: appropriate mood/affect, cooperative - Neurologic Neurologic: CNII-XII intact, moves all extremities - Allied Health Allied health notes reviewed: nursing HEART Score - HEART Score Troponin: Troponin T < 0.010 ng/mL (0.00-0.029) 01/01/22 14:11 Troponin T < 0.010 ng/mL (0.00-0.029) 01/01/22 14:11 Results - Labs CBC & Chem 7: 01/03/22 07:09 01/04/22 07:00 Labs: Laboratory Last Values WBC 3.8 K/mm3 (4.5-11.0) L 01/03/22 07:09 RBC 2.51 M/mm3 (3.65-5.03) L 01/03/22 07:09 Hgb 8.6 gm/dl (10.1-14.3) L 01/03/22 07:09 Hct 26.5 % (30.3-42.9) L 01/03/22 07:09 MCV 106 fl (79-97) H 01/03/22 07:09 MCH 34 pg (28-32) H 01/03/22 07:09 MCHC 32 % (30-34) 01/03/22 07:09 RDW 23.4 % (13.2-15.2) H 01/03/22 07:09 Plt Count 200 K/mm3 (140-440) 01/03/22 07:09 Lymph % (Auto) 13.3 % (13.4-35.0) L 01/01/22 14:11 [place] % (Auto) 6.9 % (0.0-7.3) 01/01/22 14:11 Eos % (Auto) 0.7 % (0.0-4.3) 01/01/22 14:11 Baso % (Auto) 0.6 % (0.0-1.8) 01/01/22 14:11 Lymph # (Auto) 0.6 K/mm3 (1.2-5.4) L 01/01/22 14:11 [place] # (Auto) 0.3 K/mm3 (0.0-0.8) 01/01/22 14:11 Eos # (Auto) 0.0 K/mm3 (0.0-0.4) 01/01/22 14:11 Baso # (Auto) 0.0 K/mm3 (0.0-0.1) 01/01/22 14:11 Seg Neutrophils % 78.5 % (40.0-70.0) H 01/01/22 14:11 Seg Neutrophils # 3.7 K/mm3 (1.8-7.7) 01/01/22 14:11 PT 14.0 Sec. (12.2-14.9) 01/01/22 14:11 INR 0.97 (0.87-1.13) 01/01/22 14:11 APTT 32.0 Sec. (24.2-36.6) 01/01/22 14:11 Thrombin Time 16.0 Sec. (15.1-19.6) 01/01/22 14:11 D-Dimer 682.42 ng/mlDDU (0-234) H 01/01/22 14:11 Sodium 140 mmol/L (137-145) 01/04/22 07:00 Potassium 4.2 mmol/L (3.6-5.0) 01/04/22 07:00 Chloride 104.6 mmol/L (98-107) 01/04/22 07:00 Carbon Dioxide 25 mmol/L (22-30) 01/04/22 07:00 Anion Gap 15 mmol/L 01/04/22 07:00 BUN 9 mg/dL (7-17) 01/04/22 07:00 Creatinine 0.4 mg/dL (0.6-1.2) L 01/04/22 07:00 Estimated GFR > 60 ml/min 01/04/22 07:00 BUN/Creatinine Ratio 23 % 01/04/22 07:00 Glucose 84 mg/dL (65-100) 01/04/22 07:00 POC Glucose 103 mg/dL (70-105) 01/02/22 11:11 Calcium 8.5 mg/dL (8.4-10.2) 01/04/22 07:00 Total Bilirubin 1.90 mg/dL (0.1-1.2) H 01/03/22 07:09 AST 28 units/L (5-40) 01/03/22 07:09 ALT 10 units/L (7-56) 01/03/22 07:09 Alkaline Phosphatase 91 units/L (35-129) 01/03/22 07:09 Total Creatine Kinase 56 units/L (30-135) 01/01/22 14:11 CK-MB (CK-2) 1.4 ng/mL (0.0-4.0) 01/01/22 14:11 CK-MB (CK-2) Rel Index 2.5 (0-4) 01/01/22 14:11 Troponin T < 0.010 ng/mL (0.00-0.029) 01/01/22 14:11 Troponin T < 0.010 ng/mL (0.00-0.029) 01/01/22 14:11 Total Protein 7.4 g/dL (6.3-8.2) 01/03/22 07:09 Albumin 3.7 g/dL (3.9-5) L 01/03/22 07:09 Albumin/Globulin Ratio 1.0 % 01/03/22 07:09 Triglycerides 88 mg/dL (2-149) 01/02/22 04:40 Cholesterol 118 mg/dL (50-199) 01/02/22 04:40 LDL Cholesterol Direct 76 mg/dL (50-130) 01/02/22 04:40 HDL Cholesterol 29 mg/dL (40-59) L 01/02/22 04:40 Cholesterol/HDL Ratio 4.06 % 01/02/22 04:40 Urine Color Yellow (Yellow) 01/01/22 Unknown Urine Turbidity Clear (Clear) 01/01/22 Unknown Urine pH 7.0 (5.0-7.0) 01/01/22 Unknown Ur Specific [place] 1.010 (1.003-1.030) 01/01/22 Unknown Urine Protein <15 mg/dl mg/dL (Negative) 01/01/22 Unknown Urine Glucose (UA) Negative mg/dL (Negative) 01/01/22 Unknown Urine Ketones Negative mg/dL (Negative) 01/01/22 Unknown Urine Blood Small (Negative) A 01/01/22 Unknown Urine Nitrite Negative (Negative) 01/01/22 Unknown Ur Reducing Substances Not Reportable 01/01/22 Unknown Urine Bilirubin Negative (Negative) 01/01/22 Unknown Urine Ictotest Not Reportable 01/01/22 Unknown Urine Urobilinogen 4.0 mg/dL (<2.0) 01/01/22 Unknown Ur Leukocyte Esterase Small (Negative) 01/01/22 Unknown Urine WBC (Auto) 1.0 /HPF (0.0-6.0) 01/01/22 Unknown Urine RBC (Auto) 5.0 /HPF (0.0-6.0) 01/01/22 Unknown U Epithel Cells (Auto) 3.0 /HPF (0-13.0) 01/01/22 Unknown Urine Opiates Screen Negative 01/01/22 Unknown Urine Methadone Screen Negative 01/01/22 Unknown Ur Barbiturates Screen Negative 01/01/22 Unknown Ur Phencyclidine Scrn Negative 01/01/22 Unknown Ur Amphetamines Screen Negative 01/01/22 Unknown U Benzodiazepines Scrn Negative 01/01/22 Unknown Urine Cocaine Screen Negative 01/01/22 Unknown U Marijuana (THC) Screen Negative 01/01/22 Unknown Drugs of Abuse Note Disclamer 01/01/22 Unknown Coronavirus (PCR) Negative (Negative) 01/03/22 08:00 Casas/IV: Voiding Method Bedside Commode Active Medications - Current Medications Current Medications: Generic Name Dose Route Start Last Admin Trade Name Freq PRN Reason Stop Dose Admin Acetaminophen 650 mg 01/01/22 16:27 Acetaminophen 325 Mg Tab PO Q4H PRN Pain, Mild (1-3) Atorvastatin Calcium 40 mg 01/01/22 22:00 01/03/22 21:28 Atorvastatin 40 Mg Tab PO 40 mg QHS JEFF Administration Bisacodyl 10 mg 01/01/22 16:27 Bisacodyl 10 Mg Rect Supp MO QDAY PRN Constipation Docusate Sodium 100 mg 01/02/22 22:00 01/04/22 09:53 Docusate Sodium 100 Mg Cap PO 100 mg BID JEFF Administration Escitalopram Oxalate 20 mg 01/02/22 22:00 01/03/22 21:27 Escitalopram 10 Mg Tab PO 20 mg HS [facility] Administration Famotidine 20 mg 01/03/22 10:00 01/04/22 09:53 Famotidine 20 Mg Tab PO 20 mg QDAY JEFF Administration Hydromorphone HCl 1 mg 01/03/22 12:40 01/04/22 19:00 Hydromorphone 1 Mg/1 Ml Inj IV 1 mg Q4H PRN Administration Pain , Severe (7-10) Magnesium Hydroxide 30 ml 01/01/22 16:27 Magnesium Hydroxide (Mom) Oral Liqd Udc PO Q4H PRN Constipation Ondansetron HCl 4 mg 01/01/22 16:27 Ondansetron 4 Mg/2 Ml Inj IV Q8H PRN Nausea And Vomiting Oxycodone/Acetaminophen 1 tab 01/03/22 12:40 01/04/22 17:53 Oxycodone /Acetaminophen 5-325mg Tab PO 1 tab Q6H PRN Administration Pain, Moderate (4-6) Sodium Chloride 10 ml 01/01/22 16:27 01/03/22 09:13 Sodium Chloride 0.9% 10 Ml Flush Syringe IV 10 ml PRN PRN Administration LINE FLUSH Trazodone HCl 200 mg 01/02/22 22:00 01/03/22 21:28 Trazodone 100 Mg Tab PO 200 mg QHS JEFF Administration
[2022-01-04] MEDS: ESCITALOPRAM 10 MG TAB PO SCH (21:47)
[2022-01-04] MEDS: traZODone 100 MG TAB PO SCH (21:48)
--- NOTE | 2022-01-05 07:35 | Progress Note ---
Assessment and Plan #Acute CVA status post TPA -Neurology consulted, appreciate recommendation -CT head on admit showed no intracerebral hemorrhage or stroke mimics -CTA neck/head showed no significant abnormality -Bilateral carotid ultrasound showed less than 50% diameter stenosis -PT/OT/ST consulted, appreciate recommendations. Physical therapy recommending acute rehab. -TTE revealing EF 30-35% with no PFO visualized Patient refused MRI brain despite multiple attempts and administrations of IV Ativan for anxiety -Continue atorvastatin 40 mg daily and aspirin 81 mg daily #Possible seizure Concern of patient experiencing seizure of less than 1 minute at the bedside (visualized by nurse and nurse tech) Neurology contacted about possible seizure; pending recommendations. Patient denies any seizure history. Continue to monitor. #Anxiety #Insomnia -Continue home Lexapro and trazodone #Hypertensive urgencyresolved Continue antihypertensives #Acute hypoxic respiratory failureresolved #Possible obesity hypoventilation syndrome - recommend outpatient follow-up with pulmonology #Obesity #Weight loss counseling #Exercise counseling - BMI 37.4 - Counseled patient on the importance of weight loss, incorporating exercise, and dietary changes (lean meats, fresh fruits and vegetables, and water intake). Patient expresses understanding. - Time: + 15 min #Hypokalemiaresolved -Potassium 4.1 #COVID-19 PUIresolved -COVID-19 PCR unremarkable -Patient states that she was vaccinated with Moderna x2 and received a booster shot #elevated D-dimer -Admit D-dimer 682, presented with sudden onset of chest pain, shortness of aba th -CTA chest showed no pulmonary embolism, scattered groundglass attenuation throughout bilateral lungs, chronic dilation of main pulmonary artery suggesting pulmonary arterial hypertension, chronic mediastinal and right hilar lymph node prominence, multiple pulmonary nodules in the right upper lobe measuring 8 mm with solid characteristics -Recommend CT follow-up outpatient Venous Doppler of left lower extremity negative for DVT #Advanced care planning -Disease education conducted, care plan discussed, diagnoses discussed, prognosis discussed, and patient acknowledges understanding with care plan -Time: +30 min Disposition Plan: continue medical management Total Time Spent with Patient (Minutes): 30 minutes Subjective Date of service: 01/05/22 Objective - Constitutional Vitals: Vital Signs - 12hr 01/04/22 01/04/22 01/04/22 21:37 22:00 22:53 Temperature 98.4 F Pulse Rate 102 H Respiratory 20 18 Rate Blood Pressure 151/79 O2 Sat by Pulse 89 89 97 Oximetry 01/05/22 01/05/22 01/05/22 00:00 05:38 05:39 Temperature 98.6 F Pulse Rate 105 H 99 H Respiratory 18 Rate Blood Pressure 140/78 O2 Sat by Pulse 94 Oximetry 01/05/22 07:25 Temperature Pulse Rate Respiratory Rate Blood Pressure O2 Sat by Pulse 88 Oximetry - Labs CBC & Chem 7: 01/03/22 07:09 01/04/22 07:00 Labs: Abnormal lab results 01/04/22 Range/Units 07:00 Creatinine 0.4 L (0.6-1.2) mg/dL HEART Score - HEART Score Troponin: Troponin T < 0.010 ng/mL (0.00-0.029) 01/01/22 14:11 Troponin T < 0.010 ng/mL (0.00-0.029) 01/01/22 14:11
[2022-01-05] MEDS: HYDROmorphone 1 MG/1 ML INJ IV PRN ×2 (08:16→12:55)
[2022-01-05] MEDS: FAMOTIDINE 20 MG TAB PO SCH (10:37)
[2022-01-05] MEDS: DOCUSATE SODIUM 100 MG CAP PO SCH (10:37)
--- NOTE | 2022-01-05 10:40 | Progress Note ---
Assessment and Plan Assessment and Plan 41 YO Female with Obesity, HTN, Medication Noncompliance presents ED for evaluation. Patient reports that she experienced a sudden onset of pain in her chest and shortness of breath today. Patient also acknowledges sudden onset left arm and face weakness after rising from a seated position. - Patient Problems # New onset CP and left arm numbness and weakness -R/O CVA (cerebral vascular accident) -was given TPA in ER -Initial NIH#7 -- today is #1 related to subjective sensory impairment and left upper give away weakness with no pronation!! -Initial BP #245/113 -CT brain and CTA brain and neck are unremarkable -LDL#76 -Echo is 50-55% -MRI brain showed no acute event ,but possible effusion atlanto axial junction ? -Pt/ST evaluate -repeat CT brain study in 24 hours is unremarkable # witnessed possible seizure -noted by nurses yesterday -pt. not recall and is amnestic -no hx of seizure -EEG if possible -seizure precaution -no driving - no indication to treat -Neurology follow up # Possible atlanto axial effusion noted on Brain MRI yesterday -pt. is with left arm weakness -suggest ESR -MRI cervical with and wo Gd -can be done as out pt. -with neurology follow up # Accelerated hypertension -Initial BP#245/113 -Monitor blood pressure every shift, continue medical management. # Hx of underlying anxiety - followed by psychiatry -On lexapro #20 mg and trazdon #200 mg qhs # Left foot surgery -with xray is noted- loose hardware -she is asking for pain medications -scheduled to see her orthopedics # Noncompliance Patient counseled. Patient acknowledges understanding instructions. # Obesity -Balanced diet, increase physical activity discharge. Patient with endocrine chart is not accurate. Daily weight. # Atypical chest pain -D-dimer some what elevated #682 - CT angio chest abnormal -RO/COVID-19-- test negative # DVT prophylaxis -SCD to bilateral lower extremities while in bed Plan 1- Brain MRI is unremarkable 2- ASA 81 mg and lipitor 40 mg 3- restart her lexapro and trazdon 4- PT/ST evaluate 5- BP below 200/100 for 24 hours then gradual decrease to 150/80 6- compliance with BP medications 7- Orthopedic to see re left foot 8- MRI Crvical w/wo gd can be done out pt. if no radiologist is available 9- EEG if possible 10-seizure precaution 11- Neurology follow up Subjective Date of service: 01/05/22 Interval history: status is same she is still complain of left side weakness MRI brain is unremarkable no acute event possible cervical effusion at cervicoatlantic joint ?? complains of left foot pain she is placed on Tylenol and hydrocarbon according to her not helping Hg#8 echo is with EF#50-55% LDL#76 ++ According to nursing note pt. possibly had seizure yesterday pt. not recall any denied hx of seizure , she is amnestic to event !! Objective - Vital Sign Vital Signs - 12hr 01/04/22 01/05/22 01/05/22 22:53 00:00 05:38 Temperature 98.6 F Pulse Rate 105 H Respiratory 18 18 Rate Blood Pressure 140/78 O2 Sat by Pulse 97 Oximetry 01/05/22 01/05/22 05:39 07:25 Temperature Pulse Rate 99 H Respiratory Rate Blood Pressure O2 Sat by Pulse 94 88 Oximetry - General Apperance Constitutional: comfortable - EENT EENT: PERRL, mucous membranes moist - Respiratory Respiratory: lungs clear, rhonchi - Cardiovascular Cardiovascular: regular rate, normal S1, normal S2 Extremities: no peripheral edema bilat, no clubbing, cyanosis - Gastrointestinal Gastrointestinal: normoactive bowel sounds - Integumentary Integumentary: normal - Neurologic Cranial nerve examination: PERRL, EOMI, intact Speech examination: intact Detailed motor examination: other (still with give away weakness left arm unchanged ) - Laboratory Findings CBC and BMP: 01/03/22 07:09 01/04/22 07:00 Abnormal Lab Findings: Abnormal Labs 01/01/22 01/01/22 01/01/22 14:11 14:11 14:11 WBC RBC 2.51 L Hgb 8.5 L Hct 26.4 L MCV 105 H MCH 34 H RDW 22.9 H Lymph % (Auto) 13.3 L Lymph # (Auto) 0.6 L Seg Neutrophils % 78.5 H D-Dimer 682.42 H Potassium 3.5 L Creatinine 0.5 L Glucose 101 H Calcium 8.2 L Total Bilirubin 1.70 H Albumin 3.6 L HDL Cholesterol Urine Blood 01/01/22 01/02/22 01/03/22 Unknown 04:40 07:09 WBC 3.8 L RBC 2.51 L Hgb 8.6 L Hct 26.5 L MCV 106 H MCH 34 H RDW 23.4 H Lymph % (Auto) Lymph # (Auto) Seg Neutrophils % D-Dimer Potassium Creatinine Glucose Calcium Total Bilirubin Albumin HDL Cholesterol 29 L Urine Blood Small A 01/03/22 01/04/22 07:09 07:00 WBC RBC Hgb Hct MCV MCH RDW Lymph % (Auto) Lymph # (Auto) Seg Neutrophils % D-Dimer Potassium Creatinine 0.5 L 0.4 L Glucose Calcium Total Bilirubin 1.90 H Albumin 3.7 L HDL Cholesterol Urine Blood
[2022-01-05] MEDS ORDERED: LORazepam 2 MG/ML VIAL IV ONE (11:30)
--- NOTE | 2022-01-05 12:48 | Magnetic Resonance Report ---
MRI CERVICAL SPINE WITHOUT AND WITH CONTRAST INDICATION / CLINICAL INFORMATION: r/o infectious process. TECHNIQUE: Multisequence, multiplanar images of the cervical spine were obtained. Contrast dose report: Clairscan: 20 mL administered intravenously. COMPARISON: None available. FINDINGS: Limitations: Patient motion artifact is limiting factor on this study. Sagittal T2-weighted scans wer e repeated and are satisfactory quality. Axial images are extremely limited secondary to patient abdi on artifact. Postcontrast images are limited secondary to patient motion artifact. POSTOPERATIVE CHANGES: none CRANIOCERVICAL JUNCTION:No significant abnormality. ALIGNMENT: No significant abnormality. VERTEBRAE:Normal bone marrow signal is observed throughout the cervical region. CERVICAL INTERVERTEBRAL DISCS:Disc height and signal intensity are normally maintained. VISUALIZED SPINAL CORD: No intrinsic cord lesions are identified. [id number] ANALYSIS: C2-3: No significant disc abnormality, spinal canal stenosis, or neural foraminal stenosis. C3-4: No significant disc abnormality, spinal canal stenosis, or neural foraminal stenosis. C4-5: No significant disc abnormality, spinal canal stenosis, or neural foraminal stenosis. C5-6: No significant disc abnormality, spinal canal stenosis, or neural foraminal stenosis. C6-7: No significant disc abnormality, spinal canal stenosis, or neural foraminal stenosis. C7-T1: No significant disc abnormality, spinal canal stenosis, or neural foraminal stenosis. PARASPINAL SOFT TISSUES: No significant abnormality. ADDITIONAL FINDINGS: None. IMPRESSION: 1. No focal disc herniation, spinal canal stenosis or nerve root compression. 2. No indication of discitis or osteomyelitis. 3. No intrinsic cord lesions are identified on sagittal T2-weighted scans. 4. Examination is significantly limited by patient motion artifact. Signer Name: Carroll Oakley MD Signed: 01/05/2022 12:44 PM Workstation Name: [id number]
[2022-01-05 13:28] VITALS: BP 147/80
--- NOTE | 2022-01-05 13:51 | Discharge Summary ---
Providers - Providers Date of Admission: 01/01/22 16:29 Date of discharge: 01/05/22 Attending physician: LUKAS TARANGO 01/01/22 16:29 Occupational Therapy Evaluate and Treat [CONS] Routine Comment: Reason For Exam: Neuro deficits Physical Therapy Evaluation and Treat [CONS] Routine Comment: Reason For Exam: Neuro deficits 01/01/22 16:30 Speech Therapy Evaluation and Treat [CONS] Routine Reason For Exam: swallow eval 01/02/22 08:58 Consult to Physician [CONS] Routine Comment: spoke with the / [email or web address] Consulting Provider: DAIANA GONZALES Physician Instructions: Reason For Exam: cva 01/04/22 07:42 Consult to Physician [CONS] Routine Comment: Consulting Provider: ROSA LAYNE Physician Instructions: Reason For Exam: Hardware migration in L ankle Primary care physician: TREE NORRIS Hospitalization Reason for admission: Left-sided weakness 2 malignant hypertension Condition: Stable Pertinent studies: CT scan head unremarkable. Repeat CT scan head 01/04 unremarkable. MRI of brain unremarkable. Echocardiogram ejection fraction 55%. Carotid Doppler negative then 50% stenosis bilaterally. CTA of neck unremarkable CTA of head unremarkable Bilateral Doppler negative for DVT Cervical spine MRI unremarkable Hospital course: 41 YO Female with Obesity, HTN, Medication Noncompliance presents ED for evaluation. Patient reports that she experienced a sudden onset of pain in her chest and shortness of breath today. Patient also acknowledges sudden onset left arm and face weakness after rising from a seated position. Patient transported to [facility] via private vehicle for further care and evaluation of the aforementioned symptoms. The patient was seen and evaluated in the emergency department. All lab and imaging studies reviewed. Patient was found to have a focal neurologic deficit. Teleneurology consulted. Patient found to have clinical symptoms consistent with CVA and initiated on TPA protocol. Patient admitted to ICU and initiated on CVA protocol. Patient was then evaluated for persistent subjective left-sided weakness. Patient had unremarkable CT scan head. Follow-up unremarkable MRI. And follow-up CT scan head again all unremarkable. Patient symptoms seem to respond to blood pressure control. Patient extensive work-up negative. Patient was able to stand walk talk. No focal deficits no arthralgias no myalgias. Blood pressure improved. Patient had extensive work-up for CVA as mentioned before. Hospital course complicated by a lung nodule and possible interstitial lung disease that has been scheduled to work-up on outpatient basis. Patient can have CT scan chest 6 months follow- up. Patient understands is aware. Patient follow-up with primary care physician. Patient also educated on noncompliance. This is most likely underlying issue patient not taking medications. States she has had problems with several doctors and therefore did not get medical management. Important to note will mention discharge to the patient. Patient looked that a small pustule on her right knee and said what is this did just happen right now as we are speaking. It was only a pustule but patient wanted work-up. #Acute CVA status post TPA -Neurology consulted, -CT head negative on admission and repeat negative, -CTA neck/head showed no significant abnormality -Bilateral carotid ultrasound showed less than 50% diameter stenosis -Patient does not need acute rehab. Patient walked to the bathroom bend down. Turned around. Was able to do a deep knee bend without much difficulty. -Continue atorvastatin 40 mg daily and aspirin 81 mg daily for presumptive neurologic complaints. Patient has no focal deficit this time. #Possible seizure Concern of patient experiencing seizure of less than 1 minute at the bedside (visualized by nurse and nurse tech) Neurology contacted about possible seizure; pending recommendations. Patient denies any seizure history. Continue to monitor. No further episodes of potential seizure. Patient had no stroke. Would not treat for seizure follow-up with neurology. #Anxiety-antianxiety medications. Antidepressant. Follow-up psychiatry upon discharge. #Insomnia -Continue home Lexapro and trazodone #Hypertensive urgencyresolved Continue antihypertensives-blood pressure much better controlled. #Acute hypoxic respiratory failureresolved #Possible obesity hypoventilation syndrome - recommend outpatient follow-up with pulmonology #Obesity #Weight loss counseling #Exercise counseling - BMI 37.4 - Counseled patient on the importance of weight loss, incorporating exercise, and dietary changes (lean meats, fresh fruits and vegetables, and water intake). Patient expressed understanding. #elevated D-dimer -Admit D-dimer 682, presented with sudden onset of chest pain, shortness of breath -CTA chest showed no pulmonary embolism, scattered groundglass attenuation throughout bilateral lungs, chronic dilation of main pulmonary artery suggesting pulmonary arterial hypertension, chronic mediastinal and right hilar lymph node prominence, multiple pulmonary nodules in the right upper lobe measuring 8 mm with solid characteristics -Recommend CT follow-up outpatient Venous Doppler of left lower extremity negative for DVT #Advanced care planning -Disease education conducted, care plan discussed, diagnoses discussed, prognosis discussed, and patient acknowledges understanding with care plan -Time: +30 min Disposition: 01 HOME / SELF CARE / HOMELESS Final Discharge Diagnosis (Prints w/discharge instructions): Malignant hypertension. Focal neurologic deficit Time spent for discharge: 28MIN Core Measure Documentation - Palliative Care Palliative Care/ Comfort Measures: Not Applicable - Core Measures Any of the following diagnoses?: none Exam - Constitutional Vitals: Temp Pulse Resp BP Pulse Ox 98.4 F 94 H 18 147/80 90 01/05/22 11:14 01/05/22 11:14 01/05/22 11:14 01/05/22 11:14 01/05/22 11:14 General appearance: Present: no acute distress, well-nourished - EENT Eyes: Present: PERRL ENT: hearing intact, clear oral mucosa - Neck Neck: Present: supple, normal ROM - Respiratory Respiratory effort: normal Respiratory: bilateral: CTA - Cardiovascular Heart Sounds: Present: S1 & S2. Absent: rub, click - Extremities Extremities: pulses symmetrical, No edema Peripheral Pulses: within normal limits - Abdominal General gastrointestinal: Present: soft, non-tender, non-distended, normal bowel sounds Female genitourinary: Present: normal - Integumentary Integumentary: Present: clear, warm, dry - Musculoskeletal Musculoskeletal: gait normal, strength equal bilaterally - Psychiatric Psychiatric: appropriate mood/affect, intact judgment & insight - Neurologic Neurologic: CNII-XII intact, moves all extremities, other (No focal deficits. No further evidence of any seizures. Follow-up with neurology outpatient. Patient understands is aware.) Plan Activity: no driving until cleared by PCP, fall precautions Weight Bearing Status: Full Weight Bearing Diet: low fat Special Instructions: record daily BP diary, no heavy lifting, other (Take blood pressure medications as prescribed. Take aspirin now.) Follow up with: TREE NORRIS MD [Primary Care Provider] - 7 Days Prescriptions: Docusate Sodium [Colace CAP] 100 mg PO BID #10 capsule traZODone [Desyrel] 200 mg PO QHS #30 tablet Escitalopram [Lexapro] 20 mg PO HS #30 tablet AtorvaSTATin [Lipitor] 40 mg PO QHS #30 tablet Famotidine [Pepcid] 20 mg PO QDAY #30 tablet oxyCODONE /ACETAMINOPHEN [Percocet 5/325 mg] 1 tab PO Q6H PRN #20 tablet PRN Reason: Pain, Moderate (4-6)
== END 2022-01-05 15:30 | disposition home health service (06) | DRG 304 ==
LOC: ED 13:08 → CC1 16:29 → 3A 01-03 00:21
PROVIDERS: ADMIT Internal Medicine; ATTEND Internal Medicine
DX: I16.0 Hypertensive urgency (principal); J96.01 Acute respiratory failure with hypoxia; I10 Essential (primary) hypertension; R07.89 Other chest pain; E87.6 Hypokalemia; Z20.822 Contact with and (suspected) exposure to COVID-19; F17.200 Nicotine dependence, unspecified, uncomplicated; R91.1 Solitary pulmonary nodule; Z68.37 Body mass index [BMI] 37.0-37.9, adult; Z91.19 Patient's noncompliance with other medical treatment and regimen; Z83.3 Family history of diabetes mellitus; Z82.49 Family history of ischemic heart disease and other diseases of the circulatory system; F41.9 Anxiety disorder, unspecified; E66.01 Morbid (severe) obesity due to excess calories; Z71.3 Dietary counseling and surveillance; G47.00 Insomnia, unspecified
CPT/HCPCS: 36415; 70450; 70496; 70498; 70553; 71275; 72156; 80048; 80053; 80061; 80307; 81001; 82550; 82553; 82962; 84484; 85025; 85027; 85379; 85610; 85670; 85730; 90686; 90732; 93005; 93306; 93880; 94760; G0378; A9575; C8929; J1170; J2060; J2270; J2997; Q9967; U0003